=== PATIENT | male | born 1935 | race Caucasian/White ===

== ENCOUNTER → 2017-01-06 | Outpatient (CLI) | payer MEDICARE ==
[~2017-01-06] MED LIST: ACIP20TA19 PO; CIAL5TAB PO; DILA2TAB2 PO; ERGO50000 PO; LACT20SO4 PO; MERC50TA PO; POLY17PO3 PO; PROP20TA3 PO; RABE1TAB PO; RAPA4CAP PO; RIFA550 PO; SPIR25TA PO; TRAM50TA PO; XIFA550T4 PO
[2017-01-06 12:31] LABS: BASOPHIL % 0.7 % (0.0-2.0); EOSINOPHIL # 0.3 TH/MM3 (0-0.4); HEMATOCRIT 38.2 % (39.0-51.0); LYMPH % 17.3 % (9.0-44.0); LYMPHOCYTE # 0.8 TH/MM3 (1.0-4.8); MEAN CELL VOLUME 95.6 FL (80.0-100.0); MEAN CORPUSCULAR HEMOGLOBIN 32.8 PG (27.0-34.0); MEAN CORPUSCULAR HGB CONC 34.3 % (32.0-36.0); MONO % 6.3 % (0.0-8.0); NEUT % 69.7 % (16.0-70.0); PLATELET COUNT 66 TH/MM3 (150-450); RED BLOOD COUNT 3.99 MIL/MM3 (4.50-5.90); RED CELL DISTRIBUTION WIDTH 14.7 % (11.6-17.2); WHITE BLOOD COUNT 4.4 TH/MM3 (4.0-11.0)
[2017-01-06 12:34] LABS: HEMO FLAGS AUTO DIFF
[2017-01-06 12:53] LABS: AMYLASE 98 U/L (25-115); ANION GAP 7 MEQ/L (5-15); AST (GOT) 29 U/L (15-37); BICARBONATE 20.6 MEQ/L (21.0-32.0); BLOOD UREA NITROGEN 23 MG/DL (7-18); CHLORIDE 108 MEQ/L (98-107); GLOMERULAR FILTRATION RATE 62 ML/MIN (>89); POTASSIUM 4.6 MEQ/L (3.5-5.1); SODIUM (NA) 136 MEQ/L (136-145)
[2017-01-06 12:59] LABS: ALKALINE PHOSPHATASE 116 U/L (45-117); ALT (GPT) 33 U/L (12-78); TOTAL BILIRUBIN ADULT 1.4 MG/DL (0.2-1.0)
[2017-01-06 14:22] LABS: PLATELET ESTIMATE SMEAR LOW (NORMAL); PLATELET MORPHOLOGY NORMAL (NORMAL); SCAN/DIFF AUTO DIFF CONFIRMED
== END ==
LOC: PLAB 09:35
DX: K50.90 Crohn's disease, unspecified, without complications (principal)
CPT/HCPCS: 36415; 80053; 82150; 83690; 85025

== ENCOUNTER 2017-02-27 19:23 | Emergency (ER) | payer MEDICARE ==
[~2017-02-27] VITALS: Ht 172.7 cm; Wt 70.8 kg
[~2017-02-27 19:23] MED LIST changes: -DILA2TAB2 PO; -POLY17PO3 PO; -RABE1TAB PO; -RAPA4CAP PO; -TRAM50TA PO; -XIFA550T4 PO
[2017-02-27] MEDS ORDERED: IOHEXOL 350 MG/ML 10 ML VIAL (for RAD DIAG) IVCONTRAST ONE (19:24)
[2017-02-27 19:44] VITALS: BP 147/64; PULSE 60; RESP 17; TEMP 98.4; O2SAT 96
[2017-02-27] MEDS ORDERED: SPIR25TA PO (19:55)
[2017-02-27] MEDS ORDERED: DILA2TAB2 PO (19:55)
[2017-02-27] MEDS ORDERED: PROP20TA3 PO (19:55)
[2017-02-27] MEDS ORDERED: RAPA4CAP PO (19:55)
[2017-02-27] MEDS ORDERED: RABE1TAB PO (19:55)
[2017-02-27] MEDS ORDERED: MERC50TA PO (19:55)
[2017-02-27] MEDS ORDERED: CIAL5TAB PO (19:55)
[2017-02-27] MEDS ORDERED: XIFA550T4 PO (19:55)
[2017-02-27] MEDS ORDERED: TRAM50TA PO (19:55)
[2017-02-27] MEDS ORDERED: SODIUM CHLORIDE 0.9% FLUSH 10 ML FLUSH IV FLUSH PRN (20:30)
[2017-02-27 21:07] LABS: CHLORIDE 111 MEQ/L (98-107); SODIUM (NA) 138 MEQ/L (136-145)
[2017-02-27 21:10] LABS: ANION GAP 8 MEQ/L (5-15); BICARBONATE 19.1 MEQ/L (21.0-32.0)
--- NOTE | 2017-02-27 21:10 | PD ---
HPI Chief Complaint: GI Complaint Time Seen by Provider: 19:55 Travel History International Travel<30 days: No Contact w/Intl Traveler<30days: No Traveled to known affect area: No History of Present Illness HPI patient 82-year-old male presents emergency department for evaluation of generalized abdominal cramping which was severe earlier today but the patient tach medication at home and then belched and now is feeling better. He does have a history of Crohn's disease, denies any fever mild nausea without vomiting no changes in stool habits in fact his stools of been hard which she thinks is strange for a patient with Crohn's disease. States he feels Silly being here now, he does plan on taking a road trip tomorrow and wants to make sure nothing is life threatening going on right now. Currently his symptoms are resolved, mild. 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,GERD, CHRONS DISEASE, CIRRHOSIS OF LIVER) Genitourinary: Yes (ENLARGED PROSTATE) Hepatitis: No Hiatal Hernia: Yes Hypertension: Yes Immune Disorder: Yes (CA; CHRONS) Musculoskeletal: Yes (CERVICAL SPINE--PINCHED NERVE CAUSING LEFT ARM PAIN) Neurologic: Yes (BALANCE ISSUES) Psychiatric: No Reproductive: No Respiratory: Yes Thyroid Disease: No Past Surgical History Abdominal Surgery: Yes (SMALL BOWEL RESECTION X2, CHOLECYSTECTOMY,APPENDECTOMY) Body Medical Devices: NONE Cardiac Surgery: No Cholecystectomy: Yes Ear Surgery: No Endocrine Surgery: No Eye Surgery: No Genitourinary Surgery: No Gynecologic Surgery: No Joint Replacement: No Oral Surgery: Yes (TONSILLECTOMY) Pacemaker: No Thoracic Surgery: No Other Surgery: Yes Social History Alcohol Use: No Tobacco Use: Yes (1/2PPD) Substance Use: No Allergies-Medications (Allergen,Severity, Reaction): Coded Allergies: cephalexin (Verified Allergy, Severe, Rash INSIDE MOUTH, 02/27/17) Reported Meds & Prescriptions Reported Meds & Active Scripts Active Miralax (Polyethylene Glycol 3350) 17 Gram Powd.pack 17 Gm PO BID 7 Days Reported Rapaflo (Silodosin) 4 Mg Cap Unknown Dose PO DAILY Cialis (Tadalafil) 5 Mg Tab 5 Mg PO DAILY Do not exceed 1 dose/day. Dilaudid (Hydromorphone HCl) 2 Mg Tab 2 Mg PO Q6H PRN Tramadol (Tramadol HCl) 50 Mg Tab Unknown Dose PO Q4H PRN Spironolactone 25 Mg Tab 25 Mg PO BIDPC Xifaxan (Rifaximin) 550 Mg Tab 550 Mg PO BID Rabeprazole (Rabeprazole Sodium) 20 Mg Tab 20 Mg PO DAILY Propranolol (Propranolol HCl) 20 Mg Tab 20 Mg PO BID Mercaptopurine 50 Mg Tab 25 Mg PO DAILY Review of Systems Except as stated in HPI: all other systems reviewed are Neg Physical Exam Narrative GENERAL: Well-developed, well-nourished, no obvious distress. Appears younger than stated age. SKIN: Focused skin assessment warm/dry. HEAD: Atraumatic. Normocephalic. EYES: Pupils equal and round. No scleral icterus. No injection or drainage. ENT: No nasal bleeding or discharge. Mucous membranes pink and moist. NECK: Trachea midline. No JVD. CARDIOVASCULAR: Regular rate and rhythm. No murmur appreciated. RESPIRATORY: No accessory muscle use. Clear to auscultation. Breath sounds equal bilaterally. GASTROINTESTINAL: Abdomen soft, non-tender, mildly distended. Well-healed midline surgical scar. Hepatic and splenic margins not palpable. Small midline hernia associated with surgical scar easily reducible. MUSCULOSKELETAL: No obvious deformities. No clubbing. No cyanosis. No edema. NEUROLOGICAL: Awake and alert. No obvious cranial nerve deficits. Motor grossly within normal limits. Normal speech. PSYCHIATRIC: Appropriate mood and affect; insight and judgment normal. Data Data Last Documented VS Vital Signs Date Time Temp Pulse Resp B/P (MAP) Pulse Ox O2 Delivery O2 Flow Rate FiO2 02/27/17 23:04 77 16 147/78 (101) 99 02/27/17 19:44 98.4 Orders Orders Complete Blood Count With Diff (02/27/17 20:22) Comprehensive Metabolic Panel (02/27/17 20:22) Lipase (02/27/17 20:22) Prothrombin Time / Inr (Pt) (02/27/17 20:22) Act Partial Throm Time (Ptt) (02/27/17 20:22) Ct Abd/Pel W Iv Contrast(Rout) (02/27/17 20:22) Iv Access Insert/Monitor (02/27/17 20:22) Ecg Monitoring (02/27/17 20:22) Oximetry (02/27/17 20:22) Sodium Chloride 0.9% Flush (Ns Flush) (02/27/17 20:30) Iohexol 350 Inj (Omnipaque 350 Inj) (02/27/17 19:24) Labs Laboratory Tests Test 02/27/17 20:40 02/27/17 21:00 Prothrombin Time 13.4 SEC Prothromb Time International Ratio 1.2 RATIO Activated Partial Thromboplast Time 28.4 SEC Blood Urea Nitrogen 21 MG/DL Creatinine 0.99 MG/DL Random Glucose 115 MG/DL Total Protein 6.4 GM/DL Albumin 3.2 GM/DL Calcium Level 8.1 MG/DL Alkaline Phosphatase 55 U/L Aspartate Amino Transf (AST/SGOT) 41 U/L Alanine Aminotransferase (ALT/SGPT) 32 U/L Total Bilirubin 2.5 MG/DL Sodium Level 138 MEQ/L Potassium Level 4.0 MEQ/L Chloride Level 111 MEQ/L Carbon Dioxide Level 19.1 MEQ/L Anion Gap 8 MEQ/L Estimat Glomerular Filtration Rate 73 ML/MIN Lipase 248 U/L White Blood Count 5.2 TH/MM3 Red Blood Count 3.90 MIL/MM3 Hemoglobin 12.4 GM/DL Hematocrit 37.3 % Mean Corpuscular Volume 95.6 FL Mean Corpuscular Hemoglobin 31.7 PG Mean Corpuscular Hemoglobin Concent 33.1 % Red Cell Distribution Width 14.7 % Platelet Count 68 TH/MM3 Mean Platelet Volume 8.0 FL Neutrophils (%) (Auto) 74.8 % Lymphocytes (%) (Auto) 12.8 % Monocytes (%) (Auto) 5.5 % Eosinophils (%) (Auto) 3.1 % Basophils (%) (Auto) 3.8 % Neutrophils # (Auto) 3.8 TH/MM3 Lymphocytes # (Auto) 0.7 TH/MM3 Monocytes # (Auto) 0.3 TH/MM3 Eosinophils # (Auto) 0.2 TH/MM3 Basophils # (Auto) 0.2 TH/MM3 CBC Comment DIFF FINAL Differential Comment MDM Medical Decision Making Medical Screen Exam Complete: Yes Emergency Medical Condition: Yes Differential Diagnosis Obstruction, constipation, Crohn's flare, dehydration. Narrative Course Patient roomed emergency department, minimally distended the patient states that his baseline given his hepatomegaly with a history of cirrhosis. He states he feels well now and wants to travel to [place] for a football game tomorrow. Observed for 3 hours in the emergency department had no return of his symptoms. Basic labs do show some minimal evidence of dehydration with minimal elevation in chloride, then will decrease in bicarbonate. Patient offered pain medicine and declined, CAT scan does show some stool throughout the large colon but no obvious obstruction. Official read reviewed is nonspecific finding could be early obstruction. These findings were relayed to the patient at this time he would like to go home. Discussed symptomatic management returned ED criteria. Follow-up with a primary care physician. He appears well and has not required any pain medicine R intervention in the emergency department think it's reasonable to discharge at this time. Discussed while out in the [facility] tomorrow for football game needs to stay hydrated and take frequent breaks. He verbalized understanding and agreement. Diagnosis Primary Impression: Abdominal pain Med/Other Pt SpecificInfo: Prescription(s) given Scripts Polyethylene Glycol 3350 (Miralax) 17 Gram Powd.pack 17 GM PO BID for 7 Days Prov: Samuel Boyd MD 02/27/17 Disposition: 01 DISCHARGE HOME Condition: Stable Samuel Boyd MD Feb 27, 2017 21:10
[2017-02-27 21:11] LABS: BLOOD UREA NITROGEN 21 MG/DL (7-18)
[2017-02-27 21:13] LABS: ALT (GPT) 32 U/L (12-78)
[2017-02-27 21:14] LABS: AST (GOT) 41 U/L (15-37); GLOMERULAR FILTRATION RATE 73 ML/MIN (>89)
[2017-02-27 21:15] LABS: TOTAL BILIRUBIN ADULT 2.5 MG/DL (0.2-1.0)
[2017-02-27 21:16] LABS: ALKALINE PHOSPHATASE 55 U/L (45-117)
[2017-02-27 21:21] LABS: AUTOMATED NEUTROPHIL # 3.8 TH/MM3 (1.8-7.7); BASOPHIL # 0.2 TH/MM3 (0-0.2); BASOPHIL % 3.8 % (0.0-2.0); EOSINOPHIL # 0.2 TH/MM3 (0-0.4); EOSINOPHIL % 3.1 % (0.0-4.0); HEMATOCRIT 37.3 % (39.0-51.0); LYMPH % 12.8 % (9.0-44.0); LYMPHOCYTE # 0.7 TH/MM3 (1.0-4.8); MEAN CELL VOLUME 95.6 FL (80.0-100.0); MEAN CORPUSCULAR HEMOGLOBIN 31.7 PG (27.0-34.0); MEAN CORPUSCULAR HGB CONC 33.1 % (32.0-36.0); MONO % 5.5 % (0.0-8.0); NEUT % 74.8 % (16.0-70.0); PLATELET COUNT 68 TH/MM3 (150-450); RED CELL DISTRIBUTION WIDTH 14.7 % (11.6-17.2); WHITE BLOOD COUNT 5.2 TH/MM3 (4.0-11.0)
[2017-02-27 21:25] LABS: HEMO FLAGS DIFF FINAL
[2017-02-27 21:36] LABS: APTT (PATIENT) 28.4 SEC (24.3-30.1); INTERNATIONAL NORMALIZED RATIO 1.2 RATIO; PROTHROMBIN TIME - PATIENT 13.4 SEC (9.8-11.6)
--- NOTE | 2017-02-27 22:38 | RADRPT ---
EXAM DATE/TIME: 02/27/2017 21:27 [facility] COMPARISON: CT ABDOMEN & PELVIS W CONTRAST, April 24, 2011, 14:13. INDICATIONS : Severe abdominal pain. History of Crohn's IV CONTRAST: 96 cc Omnipaque 350 (iohexol) IV ORAL CONTRAST: No oral contrast ingested. RADIATION DOSE: 9.18 CTDIvol (mGy) MEDICAL HISTORY : Cirrhosis. Gastroesophageal reflux disease. Chronic obstructive pulmonary disease.Melanoma, Thrombocy topenia SURGICAL HISTORY : Appendectomy. Cholecystectomy.Colon resection.Liver biopsy ENCOUNTER: Initial ACUITY: 1 day PAIN SCALE: 3/10 LOCATION: abdomen TECHNIQUE: Volumetric scanning of the abdomen and pelvis was performed. Using automated exposure control and ad justment of the mA and/or kV according to patient size, radiation dose was kept as low as reasonably achievable to obtain optimal diagnostic quality images. DICOM format image data is available electro nically for review and comparison. FINDINGS: LOWER LUNGS: The visualized lower lungs are clear. LIVER: Diffuse fatty change without focal lesion. Hemoclips in the francois from prior cholecystectomy. SPLEEN: Normal size without lesion. PANCREAS: Within normal limits. KIDNEYS: Normal in size and shape. There is no mass, stone or hydronephrosis. ADRENAL GLANDS: Within normal limits. VASCULAR: There is no aortic aneurysm. Diffuse wall calcification. BOWEL/MESENTERY: Small bowel loops measure up to 2.7 cm in dimension and there is fecalization of the contents of the mid and distal small bowel. No dilated colon. There is history of surgical removal of the cecum and terminal ileum. No evidence of free fluid. ABDOMINAL WALL: There is a fat-containing moderate size umbilical hernia and separation between the rectus muscles me asuring 1.8 cm. This is similar appearance to prior CT in 2010. RETROPERITONEUM: There is no lymphadenopathy. BLADDER: No wall thickening or mass. REPRODUCTIVE: Within normal limits. INGUINAL: There is no lymphadenopathy or hernia. MUSCULOSKELETAL: Within normal limits for patient age. CONCLUSION: 1. Fecalization of the small bowel with mildly dilated small bowel loops. This is a nonspecific find ing and can be seen with ileus, obstruction, ischemia, inflammation, and infection. 2. Umbilical hernia containing fat, unchanged from 2011. Mack Taylor MD on February 27, 2017 at 22:29 Board Certified Radiologist. This report was verified electronically.
[2017-02-27] MEDS ORDERED: POLY17PO3 PO (22:45)
[2017-02-27 23:04] VITALS: BP 147/78
== END 2017-02-27 23:06 | disposition home or self-care (01) ==
LOC: PHED 19:23
DX: R10.84 Generalized abdominal pain (principal); I10 Essential (primary) hypertension; F17.200 Nicotine dependence, unspecified, uncomplicated; Z87.19 Personal history of other diseases of the digestive system; Z86.79 Personal history of other diseases of the circulatory system; Z87.448 Personal history of other diseases of urinary system; Z86.2 Personal history of diseases of the blood and blood-forming organs and certain disorders involving the immune mechanism; Z87.39 Personal history of other diseases of the musculoskeletal system and connective tissue; Z86.69 Personal history of other diseases of the nervous system and sense organs; Z87.09 Personal history of other diseases of the respiratory system; Z85.828 Personal history of other malignant neoplasm of skin
CPT/HCPCS: 74177; 80053; 83690; 85025; 85610; 85730; 99285; Q9967

== ENCOUNTER → 2017-04-19 | Outpatient (CLI) | payer MEDICARE ==
[~2017-04-19] MED LIST changes: -ACIP20TA19 PO; +DILA2TAB4 PO; -ERGO50000 PO; -LACT20SO4 PO; +POLY17PO3 PO; +RABE1TAB PO; +RAPA4CAP PO; -RIFA550 PO; +TRAM50TA PO; +XIFA550T4 PO
== END ==
LOC: PLAB 10:11
PROVIDERS: ATTEND Physician Assistant Medical
DX: K74.60 Unspecified cirrhosis of liver (principal)
CPT/HCPCS: 36415; 82105

== ENCOUNTER 2017-09-21 11:18 | Inpatient (IN) | payer MEDICARE ==
[~2017-09-21] VITALS: Ht 177.8 cm; Wt 70.0 kg
[2017-09-21] VITALS (10 sets, daily range): BP systolic 132–155; BP diastolic 64–70; PULSE 69–90; RESP 18–28; TEMP 98–98.6; O2SAT 96–100
--- NOTE | 2017-09-21 11:32 | PD ---
HPI Chief Complaint: Altered Mental Status Time Seen by Provider: 11:26 Travel History International Travel<30 days: No Contact w/Intl Traveler<30days: No Traveled to known affect area: No History of Present Illness HPI 82-year-old male presents by ambulance for altered mental status per . is not present on initial examination. Patient is very uncooperative and will only tell his name and that nothing is bothering him and he is not confused. History is very limited. 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,GERD, CHRONS DISEASE, CIRRHOSIS OF LIVER) Genitourinary: Yes (ENLARGED PROSTATE) Hepatitis: No Hiatal Hernia: Yes Hypertension: Yes Immune Disorder: Yes (CA; CHRONS) Musculoskeletal: Yes (CERVICAL SPINE--PINCHED NERVE CAUSING LEFT ARM PAIN) Neurologic: Yes (BALANCE ISSUES) Psychiatric: No Reproductive: No Respiratory: Yes Thyroid Disease: No Past Surgical History Abdominal Surgery: Yes (SMALL BOWEL RESECTION X2, CHOLECYSTECTOMY,APPENDECTOMY) Body Medical Devices: NONE Cardiac Surgery: No Cholecystectomy: Yes Ear Surgery: No Endocrine Surgery: No Eye Surgery: No Genitourinary Surgery: No Gynecologic Surgery: No Joint Replacement: No Neurologic Surgery: No Oral Surgery: Yes (TONSILLECTOMY) Pacemaker: No Thoracic Surgery: No Other Surgery: Yes Social History Alcohol Use: No Tobacco Use: Yes (1/2PPD) Substance Use: No Allergies-Medications (Allergen,Severity, Reaction): Coded Allergies: cephalexin (Verified Allergy, Severe, Rash INSIDE MOUTH, 09/21/17) Reported Meds & Prescriptions Reported Meds & Active Scripts Active Reported Rapaflo (Silodosin) 4 Mg Cap Unknown Dose PO DAILY Cialis (Tadalafil) 5 Mg Tab 5 Mg PO DAILY Do not exceed 1 dose/day. Spironolactone 25 Mg Tab 25 Mg PO BIDPC Xifaxan (Rifaximin) 550 Mg Tab 550 Mg PO BID Rabeprazole (Rabeprazole Sodium) 20 Mg Tab 20 Mg PO DAILY Propranolol (Propranolol HCl) 20 Mg Tab 20 Mg PO TID Mercaptopurine 50 Mg Tab 25 Mg PO DAILY Review of Systems Except as stated in HPI: all other systems reviewed are Neg Physical Exam Narrative GENERAL: 82-year-old male in no apparent distress SKIN: Focused skin assessment warm/dry. HEAD: Atraumatic. Normocephalic. EYES: Pupils equal and round. No scleral icterus. No injection or drainage. ENT: No nasal bleeding or discharge. Mucous membranes pink and moist. NECK: Trachea midline. CARDIOVASCULAR: Regular rate and rhythm. RESPIRATORY: No accessory muscle use. Clear to auscultation. Breath sounds equal bilaterally. GASTROINTESTINAL: Abdomen soft, non-tender, nondistended. MUSCULOSKELETAL: No obvious deformities. No clubbing. No cyanosis. No edema. NEUROLOGICAL: Awake and alert to name. Moves extremities but uncooperative with full neuro exam. Normal speech. Data Data Last Documented VS Vital Signs Date Time Temp Pulse Resp B/P (MAP) Pulse Ox O2 Delivery O2 Flow Rate FiO2 09/21/17 11:30 98 Room Air 09/21/17 11:25 98.3 75 18 139/66 (90) Orders Orders Electrocardiogram (09/21/17 11:29) Ammonia (09/21/17 11:29) Complete Blood Count With Diff (09/21/17 11:29) Comprehensive Metabolic Panel (09/21/17 11:29) Creatine Kinase (Cpk) (09/21/17 11:29) Prothrombin Time / Inr (Pt) (09/21/17 11:29) Act Partial Throm Time (Ptt) (09/21/17 11:29) Urinalysis - C+S If Indicated (09/21/17 11:29) Chest, Single Ap (09/21/17 11:29) Ct Brain W/O Iv Contrast(Rout) (09/21/17 11:29) Ecg Monitoring (09/21/17 11:29) Iv Access Insert/Monitor (09/21/17 11:29) Oximetry (09/21/17 11:29) Sodium Chloride 0.9% Flush (Ns Flush) (09/21/17 11:30) Drug Screen, Random Urine (09/21/17 11:29) Alcohol (Ethanol) (09/21/17 11:29) Lactulose Liq (Lactulose Liq) (09/21/17 13:15) Sodium Chlorid 0.9% 500 Ml Inj (Ns 500 M (09/21/17 14:30) Admit Order (Ed Use Only) (09/21/17 14:49) Labs Laboratory Tests Test 09/21/17 11:50 09/21/17 11:52 09/21/17 14:45 White Blood Count 7.1 TH/MM3 Red Blood Count 4.14 MIL/MM3 Hemoglobin 13.7 GM/DL Hematocrit 39.2 % Mean Corpuscular Volume 94.9 FL Mean Corpuscular Hemoglobin 33.1 PG Mean Corpuscular Hemoglobin Concent 34.9 % Red Cell Distribution Width 15.2 % Platelet Count 70 TH/MM3 Mean Platelet Volume 7.6 FL Neutrophils (%) (Auto) 80.4 % Lymphocytes (%) (Auto) 12.8 % Monocytes (%) (Auto) 4.8 % Eosinophils (%) (Auto) 1.6 % Basophils (%) (Auto) 0.4 % Neutrophils # (Auto) 5.7 TH/MM3 Lymphocytes # (Auto) 0.9 TH/MM3 Monocytes # (Auto) 0.3 TH/MM3 Eosinophils # (Auto) 0.1 TH/MM3 Basophils # (Auto) 0.0 TH/MM3 CBC Comment AUTO DIFF Differential Comment AUTO DIFF CONFIRMED Platelet Estimate LOW Platelet Morphology Comment NORMAL Ovalocytes 1+ Prothrombin Time 13.0 SEC Prothromb Time International Ratio 1.3 RATIO Activated Partial Thromboplast Time 26.6 SEC Blood Urea Nitrogen 26 MG/DL Creatinine 1.33 MG/DL Random Glucose 126 MG/DL Total Protein 7.2 GM/DL Albumin 3.6 GM/DL Calcium Level 8.9 MG/DL Alkaline Phosphatase 119 U/L Aspartate Amino Transf (AST/SGOT) 55 U/L Alanine Aminotransferase (ALT/SGPT) 47 U/L Total Bilirubin 2.1 MG/DL Sodium Level 143 MEQ/L Potassium Level 4.3 MEQ/L Chloride Level 115 MEQ/L Carbon Dioxide Level 20.3 MEQ/L Anion Gap 8 MEQ/L Estimat Glomerular Filtration Rate 52 ML/MIN Total Creatine Kinase 42 U/L Ethyl Alcohol Level LESS THAN 3 MG/DL Ammonia 110 MCMOL/L Urine Color YELLOW Urine Turbidity CLEAR Urine pH 6.0 Urine Specific [place] 1.018 Urine Protein NEG mg/dL Urine Glucose (UA) NEG mg/dL Urine Ketones NEG mg/dL Urine Occult Blood NEG Urine Nitrite NEG Urine Bilirubin NEG Urine Urobilinogen 2.0 MG/DL Urine Leukocyte Esterase NEG Urine RBC 1 /hpf Urine WBC 1 /hpf Urine Squamous Epithelial Cells <1 /hpf Urine Hyaline Casts 3 /lpf Microscopic Urinalysis Comment CATH-CULT NOT IND MDM Medical Decision Making Medical Screen Exam Complete: Yes Emergency Medical Condition: Yes Medical Record Reviewed: Yes (Past history confirmed) Interpretation(s) CBC & BMP Diagram 09/21/17 11:50 Total Protein 7.2, Albumin 3.6, Calcium Level 8.9, Alkaline Phosphatase 119 H, Aspartate Amino Transf (AST/SGOT) 55 H, Alanine Aminotransferase (ALT/SGPT) 47, Total Bilirubin 2.1 H Last [address] 09/21/17 1129 Signed Impressions: Service Date/Time: Thursday, September 21, 2017 12:23 - CONCLUSION: No acute intracranial abnormality. Tramaine Zambrano MD Chest X-Ray 09/21/17 1129 Signed Impressions: Service Date/Time: Thursday, September 21, 2017 11:31 - CONCLUSION: No acute disease. Tramaine Zambrano MD Differential Diagnosis Bleed, hepatic encephalopathy, UTI, electrolyte abnormality Narrative Course We will check blood work, urinalysis, CT brain and monitor ED workup with hepatic encephalopathy with elevated ammonia. Will dose with lactulose and admit. Physician Communication Physician Communication dr craig agrees to admit Diagnosis Primary Impression: Hepatic encephalopathy Additional Impressions: Renal insufficiency Thrombocytopenia Admitting Information Admitting Physician Requests: Admit Tia Maurer MD Sep 21, 2017 11:32
--- NOTE | 2017-09-21 12:03 | RADRPT ---
EXAM DATE/TIME: 09/21/2017 11:31 [facility] COMPARISON: No previous studies available for comparison. INDICATIONS : Syncope MEDICAL HISTORY : Cirrhosis. Gastroesophageal reflux disease. Chronic obstructive pulmonary disease. melanoma, thro mbocytopenia, liver biopsy SURGICAL HISTORY : Appendectomy. colon resection ENCOUNTER: Initial ACUITY: 1 day PAIN SCORE: Non-responsive. LOCATION: Bilateral chest FINDINGS: A single view of the chest demonstrates the lungs to be symmetrically aerated without evidence of mas s, infiltrate or effusion. The cardiomediastinal contours are unremarkable. Osseous structures are intact. CONCLUSION: No acute disease. Tramaine Zambrano MD on September 21, 2017 at 12:01 Board Certified Radiologist. This report was verified electronically.
[2017-09-21] MEDS: SODIUM CHLORIDE 0.9% FLUSH 10 ML FLUSH IV FLUSH PRN (12:06)
[2017-09-21 12:30] LABS: AUTOMATED NEUTROPHIL # 5.7 TH/MM3 (1.8-7.7); BASOPHIL % 0.4 % (0.0-2.0); EOSINOPHIL # 0.1 TH/MM3 (0-0.4); EOSINOPHIL % 1.6 % (0.0-4.0); HEMATOCRIT 39.2 % (39.0-51.0); HEMOGLOBIN 13.7 GM/DL (13.0-17.0); LYMPH % 12.8 % (9.0-44.0); LYMPHOCYTE # 0.9 TH/MM3 (1.0-4.8); MEAN CELL VOLUME 94.9 FL (80.0-100.0); MEAN CORPUSCULAR HEMOGLOBIN 33.1 PG (27.0-34.0); MEAN CORPUSCULAR HGB CONC 34.9 % (32.0-36.0); MEAN PLATELET VOLUME 7.6 FL (7.0-11.0); MONO % 4.8 % (0.0-8.0); MONOCYTE # 0.3 TH/MM3 (0-0.9); NEUT % 80.4 % (16.0-70.0); PLATELET COUNT 70 TH/MM3 (150-450); RED BLOOD COUNT 4.14 MIL/MM3 (4.50-5.90); RED CELL DISTRIBUTION WIDTH 15.2 % (11.6-17.2); WHITE BLOOD COUNT 7.1 TH/MM3 (4.0-11.0)
--- NOTE | 2017-09-21 12:40 | RADRPT ---
EXAM DATE/TIME: 09/21/2017 12:23 [facility] COMPARISON: CT BRAIN W/O CONTRAST, January 18, 2016, 20:51. INDICATIONS : Increasing confusion RADIATION DOSE: 56.35 CTDIvol (mGy) MEDICAL HISTORY : Hypertension. Melanoma SURGICAL HISTORY : None. ENCOUNTER: Initial ACUITY: 1 day PAIN SCALE: 0/10 LOCATION: cranial TECHNIQUE: Multiple contiguous axial images were obtained of the head. Using automated exposure control and adj ustment of the mA and/or kV according to patient size, radiation dose was kept as low as reasonably a chievable to obtain optimal diagnostic quality images. DICOM format image data is available electro nically for review and comparison. FINDINGS: CEREBRUM: The ventricles are normal for age. No evidence of midline shift, mass lesion, hemorrhage or acute in farction. No extra-axial fluid collections are seen. POSTERIOR FOSSA: The cerebellum and brainstem are intact. The 4th ventricle is midline. The cerebellopontine angle i s unremarkable. EXTRACRANIAL: The visualized portion of the orbits is intact. SKULL: The calvaria is intact. No evidence of skull fracture. CONCLUSION: No acute intracranial abnormality. Tramaine Zambrano MD on September 21, 2017 at 12:37 Board Certified Radiologist. This report was verified electronically.
[2017-09-21 12:44] LABS: INTERNATIONAL NORMALIZED RATIO 1.3 RATIO
[2017-09-21 12:51] LABS: ALBUMIN 3.6 GM/DL (3.4-5.0); AST (GOT) 55 U/L (15-37); BICARBONATE 20.3 MEQ/L (21.0-32.0); BLOOD UREA NITROGEN 26 MG/DL (7-18); CALCIUM 8.9 MG/DL (8.5-10.1); CHLORIDE 115 MEQ/L (98-107); CREATININE 1.33 MG/DL (0.60-1.30); GLOMERULAR FILTRATION RATE 52 ML/MIN (>89); GLUCOSE,RANDOM 126 MG/DL (74-106); SODIUM (NA) 143 MEQ/L (136-145)
[2017-09-21 12:52] LABS: ALT (GPT) 47 U/L (12-78)
[2017-09-21 12:54] LABS: ALKALINE PHOSPHATASE 119 U/L (45-117); TOTAL BILIRUBIN ADULT 2.1 MG/DL (0.2-1.0); TOTAL PROTEIN 7.2 GM/DL (6.4-8.2)
[2017-09-21 13:11] LABS: OVALOCYTES 1+ (NORMAL)
[2017-09-21] MEDS ORDERED: LACTULOSE SYRUP 20 GM/30 ML CUP PO ONE (13:15)
[2017-09-21] MEDS ORDERED: SODIUM CHLORID 0.9% 500 ML INJ 500 ML IV ONE (14:30)
[2017-09-21] MEDS ORDERED: ONDANSETRON HCL 4 MG/2 ML VIAL IVP PRN (15:00)
[2017-09-21] MEDS ORDERED: NALOXONE HCL 0.4 MG/ML AMP IV PUSH PRN (15:00)
[2017-09-21] MEDS ORDERED: SENNOSIDES 8.6 MG TAB PO PRN (15:00)
[2017-09-21] MEDS ORDERED: MAGNESIUM HYDROXIDE SUSP 30 ML CUP PO PRN (15:00)
[2017-09-21] MEDS ORDERED: PILL SPLITTER OTHER PRN (15:15)
[2017-09-21 15:25] LABS: BILIRUBIN, URINE NEG (NEG); BLOOD, URINE NEG (NEG); GLUCOSE,URINE NEG (NEG); HYALINE CAST, URINE 3 /lpf (RARE); KETONE, URINE NEG (NEG); NITRITE,URINE NEG (NEG); SQUAMOUS EPITHELIAL CELL URINE <1 /hpf (0-5); URINE COLOR YELLOW (YELLW/STRAW); URINE LEUKOCYTE ESTERASE NEG (NEG)
--- NOTE | 2017-09-21 15:41 | HHI.HP ---
[facility] Unknown Admission Diagnosis hepatic encephalopathy Diagnoses: Chief Complaint: Change in mental status Travel History International Travel<30 Days: No Contact w/Intl Traveler <30 Da: No Traveled to Known Affected Are: No History of Present Illness 82 years old male with history of liver cirrhosis, Burns, also history of alcoholism quit about 6 years ago, thrombocytopenia hypersplenism, multiple continuous squamous cell cancer, presented to the ED with a change of mental status. I saw the patient with family at the bedside his and his son, patient was open eyes however he was unable to answer questions coherently he was constantly answering with "Irving" which is his called me first name. He stated patient started couple of days ago to be this which got worse and today, per the ED physician patient was able to answer questions when she saw him. I discussed with the family patient seems to be having previous mucus oral bleeding on his lips, I reviewed his medical record he has a history of thrombocytopenia for which he sees Dr. Luis. I discussed with the family the CODE STATUS, the dose voice the patient's wishes to be DO NOT RESUSCITATE however they were not ready to make it official as an order, and they ended up wanting him to be full code at this point therefore in view to his increased ammonia that was found and fragility on top of his excessive wheezing I will admit him to the ICU to monitor for the first 24 hours. General no further history could be obtained from the patient or his family they told me he used to be alcoholic but he quit over 6 years ago he is a current smoker. Review of Systems All systems reviewed and was positive for what is mentioned in history of present illness otherwise negative Past Family Social History Past Medical History In melanoma Multiple cutaneous squamous cell cancer GERD Crohn's disease Liver cirrhosis Remote alcohol abuse Tobacco abuse BPH COPD Past Surgical History As above Allergies: Coded Allergies: cephalexin (Verified Allergy, Severe, Rash INSIDE MOUTH, 09/21/17) Family History Unobtainable Social History Smoke 1-2 pack per day, history of remote alcohol abuse, no illicit drug abuse Physical Exam Vital Signs Vital Signs Date Time Temp Pulse Resp B/P (MAP) Pulse Ox O2 Delivery O2 Flow Rate FiO2 09/21/17 11:30 98 Room Air 09/21/17 11:25 98.3 75 18 139/66 (90) 97 Physical Exam GENERAL: This is a frail malnourished looking patient who is confused SKIN: Multiple subdural and mucous bleeding, multiple skin lesion, (cutaneous squamous cell mostly on the lower leg) HEAD: Atraumatic. Normocephalic. EYES: Pupils equal round and reactive. Extraocular motions intact. No scleral icterus. ENT: dried mucus bleeding on the left NECK: Trachea midline. Supple CARDIOVASCULAR: Regular rate and rhythm without murmurs, gallops, or rubs. RESPIRATORY: Reveal wheezing bilaterally GASTROINTESTINAL: Abdomen soft, non-tender, distended. Positive bowel sounds MUSCULOSKELETAL: Extremities without clubbing, cyanosis, or edema. Multiple skin lesion squamous cell, pedal pulses appreciated NEUROLOGICAL: Confused repeating his first name constantly, moves upper and lower extremities spontaneously Laboratory Laboratory Tests Test 09/21/17 11:50 09/21/17 11:52 09/21/17 14:45 White Blood Count 7.1 Red Blood Count 4.14 Hemoglobin 13.7 Hematocrit 39.2 Mean Corpuscular Volume 94.9 Mean Corpuscular Hemoglobin 33.1 Mean Corpuscular Hemoglobin Concent 34.9 Red Cell Distribution Width 15.2 Platelet Count 70 Mean Platelet Volume 7.6 Neutrophils (%) (Auto) 80.4 Lymphocytes (%) (Auto) 12.8 Monocytes (%) (Auto) 4.8 Eosinophils (%) (Auto) 1.6 Basophils (%) (Auto) 0.4 Neutrophils # (Auto) 5.7 Lymphocytes # (Auto) 0.9 Monocytes # (Auto) 0.3 Eosinophils # (Auto) 0.1 Basophils # (Auto) 0.0 CBC Comment AUTO DIFF Differential Comment AUTO DIFF CONFIRMED Platelet Estimate LOW Platelet Morphology Comment NORMAL Ovalocytes 1+ Prothrombin Time 13.0 Prothromb Time International Ratio 1.3 Activated Partial Thromboplast Time 26.6 Blood Urea Nitrogen 26 Creatinine 1.33 Random Glucose 126 Total Protein 7.2 Albumin 3.6 Calcium Level 8.9 Alkaline Phosphatase 119 Aspartate Amino Transf (AST/SGOT) 55 Alanine Aminotransferase (ALT/SGPT) 47 Total Bilirubin 2.1 Sodium Level 143 Potassium Level 4.3 Chloride Level 115 Carbon Dioxide Level 20.3 Anion Gap 8 Estimat Glomerular Filtration Rate 52 Total Creatine Kinase 42 Ethyl Alcohol Level LESS THAN 3 Ammonia 110 Urine Color YELLOW Urine Turbidity CLEAR Urine pH 6.0 Urine Specific [place] 1.018 Urine Protein NEG Urine Glucose (UA) NEG Urine Ketones NEG Urine Occult Blood NEG Urine Nitrite NEG Urine Bilirubin NEG Urine Urobilinogen 2.0 Urine Leukocyte Esterase NEG Urine RBC 1 Urine WBC 1 Urine Squamous Epithelial Cells <1 Urine Hyaline Casts 3 Microscopic Urinalysis Comment CATH-CULT NOT IND Result Diagram: 09/21/17 1150 09/21/17 1150 Imaging Last Impressions Head CT 09/21/17 1129 Signed Impressions: Service Date/Time: Thursday, September 21, 2017 12:23 - CONCLUSION: No acute intracranial abnormality. Tramaine Zambrano MD Chest X-Ray 09/21/[id number] Signed Impressions: Service Date/Time: Thursday, September 21, 2017 11:31 - CONCLUSION: No acute disease. MD Wade Carmona VTE Risk Assessment Edrini VTE Risk Assessment: Mod/High Risk (score >= 2) Caprini Risk Assessment Model Point Value = 1 Point Value = 2 Point Value = 3 Point Value = 5 Age 41-60 Minor surgery BMI > 25 kg/m2 Swollen legs Varicose veins or History of unexplained or recurrent spontaneous Oral contraceptives or hormone replacement Sepsis (< 1 month) Serious lung disease, including pneumonia (< 1 month) Abnormal pulmonary function Acute myocardial infarction Congestive heart failure (< 1 month) History of inflammatory bowel disease Medical patient at bed rest Age 61-74 Arthroscopic surgery Major open surgery (> 45 min) Laparoscopic surgery (> 45 min) Malignancy Confined to bed (> 72 hours) Immobilizing plaster cast Central venous access Age >= 75 History of VTE Family history of VTE Factor V Leiden Prothrombin [id number] Lupus anticoagulant Anticardiolipin antibodies Elevated serum homocysteine Heparin-induced thrombocytopenia Other congenital or acquired thrombophilia Stroke (< 1 month) Elective arthroplasty Hip, pelvis, or leg fracture Acute spinal cord injury (< 1 month) Prophylaxis Regimen Total Risk Factor Score Risk Level Prophylaxis Regimen 0-1 Low Early ambulation 2 Moderate Order ONE of the following: *Sequential Compression Device (SCD) *Heparin 5000 units SQ BID 3-4 Higher Order ONE of the following medications: *Heparin 5000 units SQ TID *Enoxaparin/Lovenox 40 mg SQ daily (WT < 150 kg, CrCl > 30 mL/min) *Enoxaparin/Lovenox 30 mg SQ daily (WT < 150 kg, CrCl > 10-29 mL/min) *Enoxaparin/Lovenox 30 mg SQ BID (WT < 150 kg, CrCl > 30 mL/min) AND/OR *Sequential Compression Device (SCD) 5 or more Highest Order ONE of the following medications: *Heparin 5000 units SQ TID (Preferred with Epidurals) *Enoxaparin/Lovenox 40 mg SQ daily (WT < 150 kg, CrCl > 30 mL/min) *Enoxaparin/Lovenox 30 mg SQ daily (WT < 150 kg, CrCl > 10-29 mL/min) *Enoxaparin/Lovenox 30 mg SQ BID (WT < 150 kg, CrCl > 30 mL/min) AND *Sequential Compression Device (SCD) Assessment and Plan Assessment and Plan 82 years old male admitted with change in mental status Change in mental status Toxic metabolic encephalopathy Hyperammonemia LULU Liver cirrhosis mostly due to alcoholism and Burns Metabolic acidosis History of thrombocytopenia due to liver cirrhosis and hypersplenism DVT prophylaxis with SCD will avoid heparin at this point due to pancytopenia Plan: We will admit for observation but in the ICU for the first 24 hours patient continued to be full code per the family O2 DuoNeb Lactulose 30 mL every 6 hours repeat ammonia level in a.m. Repeat BMP in a.m. IV fluids very cautiously half liter Continue rifaximin, Aldactone, propranolol Consult palliative care Consider GI Dr. Callahan who is a patient GI specialist, ? TIPS however patient seems to be too fragile for any surgical intervention considering his multiple malignancy comorbidities SCD for DVT prophylaxis Discussed Condition With ED physician patient's and son Gloria Erickson MD Sep 21, 2017 15:41
[2017-09-21] MEDS: SODIUM CHLOR 0.9% 1000 ML INJ 1,000 ML IV SCH ×2 (16:34→20:01)
[2017-09-21] MEDS: HEPARIN SODIUM - SQ 10,000 UNITS/ML VIAL SQ SCH (16:34)
[2017-09-21] MEDS: LACTULOSE SYRUP 20 GM/30 ML CUP PO SCH (19:59)
[2017-09-21] MEDS: PROPRANOLOL HCL 20 MG TAB PO SCH (19:59)
[2017-09-21] MEDS: SPIRONOLACTONE 25 MG TAB PO SCH (19:59)
[2017-09-21] MEDS ORDERED: RESP: ALBUTEROL 2.5 MG/IPRATROPIUM 0.5 MG NEB (PRN) NEB (20:15)
[2017-09-21] MEDS: DOCUSATE SODIUM 50 MG/SENNA 8.6 MG TAB PO SCH (21:00)
[2017-09-21] MEDS ORDERED: CHLORHEXIDINE GLUCONATE 2 % 1 PACK (2 CLOTHS)(extra cloths) TOPICAL PRN (21:15)
[2017-09-21] MEDS ORDERED: RESP: ALBUTEROL 2.5 MG/IPRATROPIUM 0.5 MG NEB (SCH) NEB (22:00)
[2017-09-22] VITALS (11 sets, daily range): BP systolic 135–169; BP diastolic 62–86; PULSE 68–87; RESP 17–28; TEMP 97.9–98.3; O2SAT 97–99
[2017-09-22] MEDS: HEPARIN SODIUM - SQ 10,000 UNITS/ML VIAL SQ SCH (00:58)
[2017-09-22] MEDS: RIFAXIMIN 550 MG TAB PO SCH ×3 (00:58→22:45)
[2017-09-22] MEDS: LACTULOSE SYRUP 20 GM/30 ML CUP PO SCH ×4 (00:59→21:00)
[2017-09-22] MEDS ORDERED: TAMSULOSIN HCL 0.4 MG CAP PO ONE (04:00)
[2017-09-22] MEDS: CHLORHEXIDINE GLUCONATE 2 % 1 PACK (2 CLOTHS)(taper/protocol) TOPICAL SCH (04:00)
[2017-09-22] MEDS: SODIUM CHLOR 0.9% 1000 ML INJ 1,000 ML IV SCH (04:56)
[2017-09-22] MEDS ORDERED: RESP: ALBUTEROL 2.5 MG/IPRATROPIUM 0.5 MG NEB (PRN) NEB (05:15)
[2017-09-22 05:24] LABS: AUTOMATED NEUTROPHIL # 4.9 TH/MM3 (1.8-7.7); BASOPHIL % 0.4 % (0.0-2.0); EOSINOPHIL # 0.1 TH/MM3 (0-0.4); EOSINOPHIL % 1.4 % (0.0-4.0); HEMATOCRIT 36.7 % (39.0-51.0); HEMOGLOBIN 12.9 GM/DL (13.0-17.0); LYMPH % 13.7 % (9.0-44.0); LYMPHOCYTE # 0.8 TH/MM3 (1.0-4.8); MEAN CELL VOLUME 94.9 FL (80.0-100.0); MEAN CORPUSCULAR HEMOGLOBIN 33.2 PG (27.0-34.0); MEAN PLATELET VOLUME 7.4 FL (7.0-11.0); MONO % 5.6 % (0.0-8.0); MONOCYTE # 0.3 TH/MM3 (0-0.9); NEUT % 78.9 % (16.0-70.0); PLATELET COUNT 65 TH/MM3 (150-450); RED BLOOD COUNT 3.87 MIL/MM3 (4.50-5.90); RED CELL DISTRIBUTION WIDTH 14.9 % (11.6-17.2); WHITE BLOOD COUNT 6.1 TH/MM3 (4.0-11.0)
[2017-09-22 05:45] LABS: ALBUMIN 3.2 GM/DL (3.4-5.0); DIRECT BILIRUBIN ADULT 0.3 MG/DL (0.0-0.2)
[2017-09-22 05:48] LABS: INDIRECT BILIRUBIN 2.8 MG/DL (0.0-0.8); TOTAL BILIRUBIN ADULT 3.1 MG/DL (0.2-1.0); TOTAL PROTEIN 6.4 GM/DL (6.4-8.2)
[2017-09-22] MEDS: RESP: ALBUTEROL 2.5 MG/IPRATROPIUM 0.5 MG NEB (SCH) NEB ×4 (08:03→20:42)
[2017-09-22] MEDS: DOCUSATE SODIUM 50 MG/SENNA 8.6 MG TAB PO SCH ×2 (09:00→22:45)
--- NOTE | 2017-09-22 09:55 | EKG ---
Date Performed: 09/21/2017 Time Performed: 11:38:13 PTAGE: 82 years EKG: ATRIAL FIBRILLATION WITH ABERRANT CONDUCTION OR VENTRICULAR PREMATURE COMPLEXES MODERATE IN TRAVENTRICULAR CONDUCTION DELAY ABNORMAL RHYTHM ECG PREVIOUS TRACING : 01/18/2016 20.28 DOCTOR: Jerald Chamberlain Interpretating Date/Time 09/22/2017 09:54:46
--- NOTE | 2017-09-22 10:23 | PD.CONS ---
Consult Service Palliative Care . Consult Requested By Dr. Erickson . Primary Care Physician Unknown . Reason for Consultation a. To assist with evaluation and management of symptoms including: confusion ; diarrhea; dyspnea b. To assist medical decision maker(s) with: better understanding of current medical conditions; weighing benefits/burdens of medical treatment options; making medical treatment decisions. HPI History of Present Illness Mr. 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 The patient initially arrived without family members and due to confusion could provide no other information other than his name. tells me that the patient has a history of intermittent confusion which is attributed to his liver disease. He has been having episodes for years. The current episode was the most severe. The last very severe one was about two years ago. THough severe episodes are rare, he will have periods of confusion as often as twice a week that are mild, short-lived, and seem to resolve on their own. Spouse reports that the current episode seemed to start about 2 weeks ago. She took control over his medication and things seemed to improve. Then the confusion became quite severe over about a 24- 36 hours period leading up his ER presentation. He was unable to tell people his last name and was disoriented to place and time. Though would put out his medications, she is now wondering if he actually took them when she gave them to him. Though the patient's medical record often refers to non-alcoholic cirrhosis and DOVER, the patient and family report a long history of excessive alcohol intake which ended about 6 years ago. Patient and family are unaware of any other significant problems other than the confusion. Specifically, there has been no jaundice, no increase in abdominal circumference, no rectal bleeding or other bleeding, no increase bruising. Patient and family do not believe the patient has ever required paracentesis. He has not had fevers, chills, or sweats. There have only been changes in medications over the last weeks: * In mid-July, Dr. Luis started the patient on nicotinamide. Patient has noticed some increased loose stools with the medication, but no other symptoms. * Over the lat 6 weeks the patient has been getting local injections of some type of chemo into some of his cutaneous squamous cell cancers. The patient has been followed regularly for his thrombocytopenia by Dr. Niki Luis. The hospital electronic medical record indicates that Dr. Luis last saw the patient on 08/25/17. the patient's eyeglass assembler had noted another skin cancer and apparently the eyeglass assembler wanted clearance for procedure due to the thrombocytopenia. CBC at that time showed a white blood count of 6.8; hemoglobin 12.9; platelet count 92. Dr. Luis felt the thrombocytopenia was asymptomatic and stable and that no further treatment was warranted at that time. Nicotinamide at 500 mg twice daily was recommended. In regards to the status of the patient's other medical problems: * Crohn's disease is felt to be in remission. He has had two small bowel resections in the distant past. Last Crohn's flare up was well before they moved to [place] over 7 years ago. * COPD: Patient reports he is not on home 02. He does not use hand held inhalers. He has a nebulizer machine at home that he rarely uses. reports he has a frequent cough and does bring up phlegm. Activities do not seem to be limited by dyspnea. * Skin cancers: He sees the eyeglass assembler monthly and always has lesions that are being treated. He has had multiple excisions, radiation, and now some unkown type of locally injected chemotherapy. * BPH: Patient reports a weak stream but feels the symptoms are well controlled on his current regimen. No episodes of urinary retention requiring catheterization. Initial vital signs in the emergency department showed temperature 98.3; pulse 77; respiratory rate 16; blood pressure 147/78; pulse oximetry 99% on room air. Physical examination in the emergency department notable for: No apparent distress; no jaundice; unremarkable cardiovascular/respiratory/abdominal exams. Patient was alert to name but uncooperative with full neurologic examination. Initial diagnostic testing revealed the following: * CBC showed WBC 7.1; hemoglobin 13.7; platelet count 70 * Coagulation profile showed PT 13.0; INR 1.3; PTT 26.6 * Chemistry profile showed sodium 143; potassium 4.3; chloride 115; CO2 20.3; anion gap 8; BUN 26; creatinine 1.33; GFR 52; glucose 126 * Liver function testing showed total bilirubin 2.1; alkaline phosphatase 119; AST 55; ALT 47; total protein 7.2; albumin 3.6 * Ammonia level was 110 * Total CK was 42 * Ethyl alcohol level was less than 3 * Urinalysis was unremarkable * Chest x-ray showed no acute disease CT of the head showed no acute intracranial abnormality The impression of the emergency room physician was that this was likely hepatic encephalopathy. Patient was dosed with lactulose and admitted to the [facility] Hospitalist service. The hospitalist noticed significant wheezing and decided to admit the patient to the intensive care unit. In addition to lactulose, the patient was given IV fluids. Oxygen and duo nebs were offered for the patient's respiratory issues. Rifaximin, Aldactone, and propranolol were continued. Apparently, the hospitalist discussed resuscitation status with available family members. Although there appeared to be agreement that the patient would not want resuscitation effort, family was unwilling at that time to agree to a DO NOT RESUSCITATE order. At time of my visit the patient is awake, alert, and oriented. He is able to answer most questions appropriately. and both sons are at the bedside. They report a remarkable improvement over night though they do not think he is quite back to baseline. History is provided by the patient, family, and the available medical record. . Function/Cognitive Trajectory Family reports that there has been a significant overall decline over the last year. He is weaker. There is more confusion. He has lost about 40 lbs. In spite of the decline, patient normally walks without any assistive device. He takes care of all of his ADLs. He gardens and does other chores around the house. . Review of Systems Constitutional: COMPLAINS OF: Weight loss, Change in appetite, Generalized weakness, DENIES: Fever, Weight gain, Night Sweats, Pain Endocrine: DENIES: Polydipsia, Polyuria, Polyphagia Eyes: COMPLAINS OF: Vision loss, DENIES: Diplopia Ears, nose, mouth, throat: COMPLAINS OF: Hearing loss, DENIES: Throat pain, Hoarseness, Ear Pain, Running Nose, Epistaxis Respiratory: COMPLAINS OF: Cough, Wheezing, Sputum production, Shortness of breath, DENIES: Apneas, Hemoptysis Cardiovascular: COMPLAINS OF: Dyspnea on Exertion, DENIES: Chest pain, Palpitations, Lower Extremity Edema Gastrointestinal: COMPLAINS OF: Diarrhea, Dyspepsia or heartburn, DENIES: Abdominal pain, Black stools, Bloody stools, Constipation, Nausea, Vomiting, Difficulty Swallowing, Anorexia Genitourinary: COMPLAINS OF: Hesitancy, Decreased stream, DENIES: Urinary incontinence, Hematuria, Dysuria Musculoskeletal: DENIES: Joint pain, Muscle aches, Back pain Integumentary: COMPLAINS OF: Rash, Tumors (Skin tumors) Hematologic/Lymphatics: COMPLAINS OF: Bruising Immunologic/Allergic: DENIES: Urticaria Neurologic: COMPLAINS OF: Poor Balance, DENIES: Abnormal gait, Headache, Seizures, Tremor Psychiatric: COMPLAINS OF: Confusion, Agitation, DENIES: Anxiety, Depression Past Family Social History Coded Allergies: cephalexin (Verified Allergy, Severe, Rash INSIDE MOUTH, 09/21/17) Past Medical History non-alcoholic steato heaptitis with cirrhosis and chronic throbmocytopenia; cutaneous squamous cell ancer; BPH; Crohn's disease; melanoma of the RUE; COPD; Biliary stones Gastroesophageal reflux disease Hiatal hernia 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 Past Surgical History Appendectomy Liver bx 07/11/15 showing steatohepatitis with cirrhosis. Colon resections in 1984 and 2003 Hernia repair Excision of melanoma from RUE Squamous cell Ca excisions Vasectomy Choelcsytecomty in 2004 Reported Medications Prehospitalization medications included the following: Rapaflo (Silodosin) 4 Mg Cap Unknown Dose PO DAILY Cialis (Tadalafil) 5 Mg Tab 5 Mg PO DAILY Spironolactone 25 Mg Tab 25 Mg PO BIDPC Xifaxan (Rifaximin) 550 Mg Tab 550 Mg PO BID Rabeprazole (Rabeprazole Sodium) 20 Mg Tab 20 Mg PO DAILY Propranolol (Propranolol HCl) 20 Mg Tab 20 Mg PO TID Mercaptopurine 50 Mg Tab 25 Mg PO DAILY Current Medications Medications (Trade) Dose Ordered Sig/Radha Route Start Time Stop Time Status Last Admin (NS Flush) 2 ml UNSCH PRN IV FLUSH 09/21/17 11:30 09/21/17 12:06 (Lactulose Liq) 30 ml QID PO 09/21/17 18:00 09/22/17 00:59 (Purinethol) 25 mg DAILY PO 09/22/17 09:00 (Inderal) 20 mg TID PO 09/21/17 18:00 09/21/17 19:59 (Xifaxan) 550 mg BID PO 09/21/17 21:00 09/22/17 00:58 (Aldactone) 25 mg BIDPC PO 09/21/17 18:00 09/21/17 19:59 (Zofran Inj) 4 mg Q6H PRN IVP 09/21/17 15:00 (Narcan Inj) 0.4 mg UNSCH PRN IV PUSH 09/21/17 15:00 (Margy-Colace) 1 tab BID PO 09/21/17 21:00 09/21/17 21:00 (Milk Of Magnesia Liq) 30 ml Q12H PRN PO 09/21/17 15:00 (Senokot) 17.2 mg Q12H PRN PO 09/21/17 15:00 (Pill Splitter) 1 ea UNSCH PRN OTHER 09/21/17 15:15 Miscellaneous Information Patient in critical care unit? Ass... [id number] .XX 09/21/17 21:15 09/21/17 21:15 (Chlorhexidine 2% Cloth) 3 pack DAILY@04 TOPICAL 09/22/17 04:00 09/26/17 04:01 09/22/17 04:00 (Chlorhexidine 2% Cloth) 3 pack UNSCH PRN TOPICAL 09/21/17 21:15 09/26/17 21:04 (Flomax) 0.4 mg DAILY PO 09/23/17 09:00 (Duoneb Neb) 1 ampule QID NEB NEB 09/22/17 08:00 09/22/17 08:03 (Duoneb Neb) 1 ampule Q2HR NEB PRN NEB 09/22/17 05:15 09/22/17 05:29 . Family History Mr. Chapman's parents are both -- both had CAD had from myocardial infarctions. There is no liver disease in the family. One sister who had diabetes. One brother is alive but has significant heart disease. One sister who is alive has cancer and osteoarthritis. . Substance Use Tobacco: Patient reports 4 cigarettes / day but rest of family insist that he smokes 1 to 1.5 ppd. He has smoked since teen years. Alcohol: Reported history of abuse. Quit approximately 6 years ago. Prescription med abuse: No known prescription drug abuse. Illicits: No known use of illicits. . Psychosocial History Mr. Chapman is originally from [place]. He has lived in [place] for about 7 years. He has a high school education. 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 Patient was once. He has been to Chante for 59 years. They have two sons -- Denis lives in [place]; Ceferino lives in [facility]. There are multiple grandchildren and some great grandchildren. . Spiritual/Cultural Factors Baptism and spirituality play an important role in his life. He is Mosque and belongs to the [facility]. His tableman has already visited him in the hospital. . Living Will: Never completed Health Care Surrogate: Never completed Durable Power of Methods Time Analyst: Never completed Date completed: Has never completed an advance directive but advance directive forms were provided to patient and family on 09/22/17 . Health Care Surrogate(s): Patient has verbally designated that he want his spouse to serve as his health care surrogate. . Documented care wishes: No written documentation of health care preferences / goals at this time. . Today's verbally stated goals: Patient has requested DNR status. He wants aggressive care short of resuscitation attempts at this time. . Family/friends goals: Spouse and sons are present and are in agreement with patient's stated wishes. . Ethical and Legal Issues Patient's encephalopathy is much improved. He is able to provide medication names and doses, doctor's names, and shows insight into his illnesses. At this time I believe he is capacitated to make his own decisions. Since confusion can wax and wane, I recommend that all important health care decision be shared decisions involving his spouse. . Physical Exam Vital Signs Date Time Temp Pulse Resp B/P (MAP) Pulse Ox O2 Delivery O2 Flow Rate FiO2 09/22/17 08:05 99 21 09/22/17 06:00 68 09/22/17 04:00 98.3 74 21 169/77 (107) 98 09/22/17 04:00 74 09/22/17 02:00 72 09/22/17 00:00 74 09/22/17 00:00 98.0 74 21 135/86 (102) 99 09/21/17 22:00 71 09/21/17 21:46 100 Nasal Cannula 2.00 09/21/17 20:00 86 09/21/17 19:01 98.6 90 28 149/66 (93) 99 09/21/17 18:12 99 Nasal Cannula 2.00 09/21/17 18:00 98.0 83 23 135/66 (89) 100 09/21/17 18:00 83 09/21/17 17:20 80 16 146/67 (93) 98 09/21/17 16:00 69 20 132/64 (86) 96 Room Air 09/21/17 15:00 83 18 155/70 (98) 96 Room Air 09/21/17 11:30 98 Room Air 09/21/17 11:25 98.3 75 18 139/66 (90) 97 . Exam CONSTITUTIONAL/GENERAL: This is a thin, frail appearing patient . He is awake, conversant in a MICU bed and in no apparent distress. TUBES/LINES/DRAINS: No 02. Peripheral IV. Coude catheter SKIN: No jaundice, rashes. Significant actinic skin damage on all sun-exposed areas. Ecchymoses on upper extremities. Skin temperature appropriate. Not diaphoretic. HEAD: Atraumatic. Normocephalic. EYES: Pupils equal and round and reactive. Extraocular motions intact. No scleral icterus. No injection or drainage. Fundi not examined. ENT: Hearing grossly normal. Nose without bleeding or purulent drainage. Throat without visible erythema, exudates, masses, or lesions. NECK: Trachea midline. Supple, nontender. No palpable thyroid enlargement or nodularity. CARDIOVASCULAR: Regular rate and rhythm without murmurs, gallops, or rubs. No JVD. Peripheral pulses symmetric. RESPIRATORY/CHEST: Symmetric, unlabored respirations. Clear to auscultation. Breath sounds equal bilaterally. No wheezes, rales, or rhonchi. Intermittent cough present. GASTROINTESTINAL: Abdomen soft, non-tender, but distended. . No hepato- splenomegaly, or palpable masses. No guarding. Bowel sounds present. GENITOURINARY: Without palpable bladder distension. MUSCULOSKELETAL: Extremities without clubbing, cyanosis, or edema. No joint tenderness or effusion noted. No calf tenderness. No mottling or clubbing. LYMPHATICS: No palpable cervical or supraclavicular adenopathy. NEUROLOGICAL: Awake and alert. Motor and sensory grossly within normal limits. Follows commands. Answers most questions appropriately. Moves all extremities. PSYCHIATRIC: No obvious anxiety/depression. no apparent hallucinations or other psychotic thought process. . Diagnostic Tests Laboratory Laboratory Tests Test 09/21/17 11:50 09/21/17 11:52 09/21/17 14:45 09/21/17 18:15 White Blood Count 7.1 TH/MM3 (4.0-11.0) Red Blood Count 4.14 MIL/MM3 (4.50-5.90) Hemoglobin 13.7 GM/DL (13.0-17.0) Hematocrit 39.2 % (39.0-51.0) Mean Corpuscular Volume 94.9 FL (80.0-100.0) Mean Corpuscular Hemoglobin 33.1 PG (27.0-34.0) Mean Corpuscular Hemoglobin Concent 34.9 % (32.0-36.0) Red Cell Distribution Width 15.2 % (11.6-17.2) Platelet Count 70 TH/MM3 (150-450) Mean Platelet Volume 7.6 FL (7.0-11.0) Neutrophils (%) (Auto) 80.4 % (16.0-70.0) Lymphocytes (%) (Auto) 12.8 % (9.0-44.0) Monocytes (%) (Auto) 4.8 % (0.0-8.0) Eosinophils (%) (Auto) 1.6 % (0.0-4.0) Basophils (%) (Auto) 0.4 % (0.0-2.0) Neutrophils # (Auto) 5.7 TH/MM3 (1.8-7.7) Lymphocytes # (Auto) 0.9 TH/MM3 (1.0-4.8) Monocytes # (Auto) 0.3 TH/MM3 (0-0.9) Eosinophils # (Auto) 0.1 TH/MM3 (0-0.4) Basophils # (Auto) 0.0 TH/MM3 (0-0.2) CBC Comment AUTO DIFF Differential Comment AUTO DIFF CONFIRMED Platelet Estimate LOW (NORMAL) Platelet Morphology Comment NORMAL (NORMAL) Ovalocytes 1+ (NORMAL) Prothrombin Time 13.0 SEC (9.8-11.6) Prothromb Time International Ratio 1.3 RATIO Activated Partial Thromboplast Time 26.6 SEC (24.3-30.1) Blood Urea Nitrogen 26 MG/DL (7-18) Creatinine 1.33 MG/DL (0.60-1.30) Random Glucose 126 MG/DL (74-106) Total Protein 7.2 GM/DL (6.4-8.2) Albumin 3.6 GM/DL (3.4-5.0) Calcium Level 8.9 MG/DL (8.5-10.1) Alkaline Phosphatase 119 U/L (45-117) Aspartate Amino Transf (AST/SGOT) 55 U/L (15-37) Alanine Aminotransferase (ALT/SGPT) 47 U/L (12-78) Total Bilirubin 2.1 MG/DL (0.2-1.0) Sodium Level 143 MEQ/L (136-145) Potassium Level 4.3 MEQ/L (3.5-5.1) Chloride Level 115 MEQ/L (98-107) Carbon Dioxide Level 20.3 MEQ/L (21.0-32.0) Anion Gap 8 MEQ/L (5-15) Estimat Glomerular Filtration Rate 52 ML/MIN (>89) Total Creatine Kinase 42 U/L (39-308) Ethyl Alcohol Level LESS THAN 3 MG/DL (0-5) Ammonia 110 MCMOL/L (11-32) Urine Color YELLOW (YELLW/STRAW) Urine Turbidity CLEAR (CLEAR) Urine pH 6.0 (5.0-8.5) Urine Specific [place] 1.018 (1.002-1.035) Urine Protein NEG mg/dL (NEG-TRACE) Urine Glucose (UA) NEG mg/dL (NEG) Urine Ketones NEG mg/dL (NEG) Urine Occult Blood NEG (NEG) Urine Nitrite NEG (NEG) Urine Bilirubin NEG (NEG) Urine Urobilinogen 2.0 MG/DL (LESS THAN Urine Leukocyte Esterase NEG (NEG) Urine RBC 1 /hpf (0-3) Urine WBC 1 /hpf (0-5) Urine Squamous Epithelial Cells <1 /hpf (0-5) Urine Hyaline Casts 3 /lpf (RARE) Microscopic Urinalysis Comment CATH-CULT NOT IND Urine Opiates Screen NEG (NEG) Urine Barbiturates Screen NEG (NEG) Urine Amphetamines Screen NEG (NEG) Urine Benzodiazepines Screen NEG (NEG) Urine Cocaine Screen NEG (NEG) Urine Cannabinoids Screen NEG (NEG) Nasal Screen MRSA (PCR) MRSA NOT DETECTED (NOT Test 09/22/17 05:08 White Blood Count 6.1 TH/MM3 (4.0-11.0) Red Blood Count 3.87 MIL/MM3 (4.50-5.90) Hemoglobin 12.9 GM/DL (13.0-17.0) Hematocrit 36.7 % (39.0-51.0) Mean Corpuscular Volume 94.9 FL (80.0-100.0) Mean Corpuscular Hemoglobin 33.2 PG (27.0-34.0) Mean Corpuscular Hemoglobin Concent 35.0 % (32.0-36.0) Red Cell Distribution Width 14.9 % (11.6-17.2) Platelet Count 65 TH/MM3 (150-450) Mean Platelet Volume 7.4 FL (7.0-11.0) Neutrophils (%) (Auto) 78.9 % (16.0-70.0) Lymphocytes (%) (Auto) 13.7 % (9.0-44.0) Monocytes (%) (Auto) 5.6 % (0.0-8.0) Eosinophils (%) (Auto) 1.4 % (0.0-4.0) Basophils (%) (Auto) 0.4 % (0.0-2.0) Neutrophils # (Auto) 4.9 TH/MM3 (1.8-7.7) Lymphocytes # (Auto) 0.8 TH/MM3 (1.0-4.8) Monocytes # (Auto) 0.3 TH/MM3 (0-0.9) Eosinophils # (Auto) 0.1 TH/MM3 (0-0.4) Basophils # (Auto) 0.0 TH/MM3 (0-0.2) CBC Comment AUTO DIFF Differential Comment AUTO DIFF CONFIRMED Platelet Estimate LOW (NORMAL) Platelet Morphology Comment NORMAL (NORMAL) Total Bilirubin 3.1 MG/DL (0.2-1.0) Direct Bilirubin 0.3 MG/DL (0.0-0.2) Indirect Bilirubin 2.8 MG/DL (0.0-0.8) Aspartate Amino Transf (AST/SGOT) 47 U/L (15-37) Alanine Aminotransferase (ALT/SGPT) 49 U/L (12-78) Alkaline Phosphatase 73 U/L (45-117) Ammonia 71 MCMOL/L (11-32) Total Protein 6.4 GM/DL (6.4-8.2) Albumin 3.2 GM/DL (3.4-5.0) Lipase 278 U/L (73-393) . Result Diagram: 09/22/17 0508 09/21/17 1150 Imaging Last Impressions Head CT 09/21/17 1129 Signed Impressions: Service Date/Time: Thursday, September 21, 2017 12:23 - CONCLUSION: No acute intracranial abnormality. Tramaine Zambrano MD Chest X-Ray 09/21/17 1129 Signed Impressions: Service Date/Time: Thursday, September 21, 2017 11:31 - CONCLUSION: No acute disease. Tramaine Zambrano MD . Patient/Family Conference Present at Family Conference: Patient; spouse; two sons -- Ceferino and Denis. . Family Conference Time (mins): 55 (55 minutes total with 20 minutes devoted to advacne care planning. ) Family Conference Location: Bedside Issues Discussed: * Palliative care role, purpose, approach * Additional medical, psychosocial, and spiritual history * Patients general health, functional status, and cognitive changes in the months leading up to the current hospitalization * Patient/family understanding of the current medical problems * Patient/family understanding of prognosis * Patients goals of medical treatment. * Current medical treatment options and benefits/burdens of those options * Questions answered to the best of my ability * Palliative care contact information provided == Advance Care Planning: Offered to discuss advance care planning with patient, spouse, and two sons. They voluntarily accepted. Discussed the importance of living tirado and health care surrogate designation. We discussed the importance on ongoing family conversation regarding what gives each person a life of meaning and purpose and what quality of life they would want to fight for even if it meant time on machines or uncomfortable procedures. Time specifically discussing advanced care planning was 20 minutes. A living will ( including health care surrogate designation) was printed out, explained, and given to patient and family to complete. . Assessment and Plan Disease Oriented Problem List: (1) Hepatic encephalopathy (2) Hepatic cirrhosis (3) Abnormal LFTs (liver function tests) (4) Hypersplenism (5) Thrombocytopenia (6) Acute kidney injury (7) COPD (chronic obstructive pulmonary disease) (8) BPH (benign prostatic hyperplasia) (9) Crohn's disease (10) Hyperammonemia Symptom Scale: (1) Pain 0-10 Scale: 0 Comment: Denies pain at this time. No chronic pain syndromes noted. . (2) Dyspnea 0-10 Scale: 0 Comment: No dyspnea while at rest in bed. Patient is life long smoker with reported history of COPD. Normally, not on 02 but has nebulizer machine at home. . (3) Diarrhea 0-10 Scale: Unable to quantify Comment: Patient normally has some loose stools due to his Crohn's disease and his two small bowel resections. Loose stools normally increased as he is updosing lactulose. Also believes bowels became loose after he was started mid- July on Nicotinamide. . (4) Confusion 0-10 Scale: 10 Comment: Confusion was quite severe during this episode. Patient now appears close to baseline. . (5) Unintended weight loss 0-10 Scale: 0 Comment: Patient has reportedly lost 40 lbs over past year. . Pertinent Non-Medical Issues Psychosocial: Spiritual: Legal: Ethical issues impacting care: Important Contacts * Chante Chapman (spouse) [phone]; [phone] * . Prognosis Patient has hepatic cirrhosis with hypersplenism and thrombocytopenia. He has been on a slow, steady decline for about a year including a 40 lb weight loss. There have been increasing episodes of confusion. His course is complicated by COPD with ongoing smoking; Crohn's disease (currently in remission); and multiple cutaneous skin cancers. As patient appears to be improving, I doubt this hospitalization signals the beginning of true end stage liver disease. Anticipate, however, that periods of encephalopathy will begin to come more frequently and be more refractory to treatment. . Code Status: No Code Plan == Code Status: Resuscitation wishes were discussed with and two sons present. Given his overall decline over the past year all were in agreement with DNR status. == Decision making: Patient's encephalopathy is much improved. He is able to provide medication names and doses, doctor's names, and shows insight into his illnesses. At this time I believe he is capacitated to make his own decisions. Since confusion can was and wane, I recommend that all important health care decision be shared decisions involving his spouse. == Goals of medical treatment: Patient desires ongoing aggressive care short of resuscitation efforts. == Symptoms * Confusion -- patient has had intermittent confusion for years and has been attributed to encephalopathy from his liver disease. This episode was one of his most severe. Confusion is improving as ammonia level is decreasing. Will continue to treat with rifaximin , lactulose. Aim for at least 2-3 semi-formed stools per day. No further recommendations at this time. * Diarrhea: Patient has some chronic loose stools due to his Crohn's and history of 2 separate small bowel excisions . He also has loose stools from his lactulose. For control of the encephalopathy, would recommend aiming for 2- 3 semi-formed bowel movements per day. * Pain: Denies pain * Unintended weight loss: Patient and family report approximately 40 lbs of unintended weight loss over the last year. == Uncertain if there are any "fixable" factors that may have contributed to the increasing encephalopathy. Some factors might include: * Patient may not have been taking all his medications as directed * Patient was started mid July on nicotinamide. At usual doses, this is felt to help liver disease. However, at higher doses may further injure the liver. Probably want to check current dosing. Patient says he has had increased loose stools since starting this. * For 6 weeks patient's eyeglass assembler has been injecting some type of "chemo" into squamous cell lesions. May want to check what type of "chemo" this is and if local injections could conceivably impact patient's underlying liver disease. == Patient is currently smoking. Family reports he is smoking 1 to 1.5 ppd which is more than the patient admits to. Patient was counseled to stop. == Advance Care Planning: Offered to discuss advance care planning with patient, spouse, and two sons. They voluntarily accepted. Discussed the importance of living [place] and health care surrogate designation. We discussed the importance on ongoing family conversation regarding what gives each person a life of meaning and purpose and what quality of life they would want to fight for even if it meant time on machines or uncomfortable procedures. Time specifically discussing advanced care planning was 20 minutes. A living will ( including health care surrogate designation) was printed out, explained, and given to patient and family to complete. == Disposition: Anticipate patient will be discharged home when he leaves the hospital. Recommend that patient's supervise medications. Would encourage adjustment of lactulose to ensure at least 2-3 semi-formed bowel movements per day. == Palliative care will continue to follow to assist with symptom management and to further clarify goals of medical treatment as the clinical course evolves. . Thank you for the opportunity to participate in the care of Mr. Chapman. . . Attestation To help prompt me to consider important information that might be impacting today's encounter and assessment, information from prior notes written by myself or my colleagues may have been "brought forward" into today's note. My signature on this note, however, is an attestation that I personally performed the exam, history, and/or decision-making noted today, and, unless otherwise indicated, the interactions with patient, family, and staff as well as the review of records all occurred today. I also attest that the listed assessment and stated plan reflect my best clinical judgment today based on the combination of historical information, prior notes, and today's exam/ interactions. When time spent is documented, it refers only to time spent today by the signer, or if indicated, combined time spent today by collaborating physician/nurse practitioner. . . Arturo Bynum MD Sep 22, 2017 10:23
[2017-09-22] MEDS: PROPRANOLOL HCL 20 MG TAB PO SCH ×2 (13:13→17:51)
--- NOTE | 2017-09-22 14:27 | HHI.PR ---
Subjective Remarks 82 years old male with history of liver cirrhosis, Burns, also history of alcoholism quit about 6 years ago, thrombocytopenia hypersplenism, multiple continuous squamous cell cancer, presented to the ED with a change of mental status. I saw the patient with family at the bedside his and his son, patient was open eyes however he was unable to answer questions coherently he was constantly answering with "Irving" which is his called me first name. He stated patient started couple of days ago to be this which got worse and today, per the ED physician patient was able to answer questions when she saw him. I discussed with the family patient seems to be having previous mucus oral bleeding on his lips, I reviewed his medical record he has a history of thrombocytopenia for which he sees Dr. Luis. I discussed with the family the CODE STATUS, the dose voice the patient's wishes to be DO NOT RESUSCITATE however they were not ready to make it official as an order, and they ended up wanting him to be full code at this point therefore in view to his increased ammonia that was found and fragility on top of his excessive wheezing I will admit him to the ICU to monitor for the first 24 hours. General no further history could be obtained from the patient or his family they told me he used to be alcoholic but he quit over 6 years ago he is a current smoker. 09-22 patient is much more alert today patient does not always take all his medications correctly States he forgets his rifaximin quite frequently Discussed with RN and patient and family will get physical therapy and occupational therapy to eval and treat AM LABS CONSULT GI Objective Vitals Vital Signs Date Time Temp Pulse Resp B/P (MAP) Pulse Ox O2 Delivery O2 Flow Rate FiO2 09/22/17 10:00 77 09/22/17 08:05 99 21 09/22/17 08:00 98.1 86 17 140/63 (88) 98 09/22/17 08:00 86 09/22/17 06:00 68 09/22/17 04:00 98.3 74 21 169/77 (107) 98 09/22/17 04:00 74 09/22/17 02:00 72 09/22/17 00:00 74 09/22/17 00:00 98.0 74 21 135/86 (102) 99 09/21/17 22:00 71 09/21/17 21:46 100 Nasal Cannula 2.00 09/21/17 20:00 86 09/21/17 19:01 98.6 90 28 149/66 (93) 99 09/21/17 18:12 99 Nasal Cannula 2.00 09/21/17 18:00 98.0 83 23 135/66 (89) 100 09/21/17 18:00 83 09/21/17 17:20 80 16 146/67 (93) 98 09/21/17 16:00 69 20 132/64 (86) 96 Room Air 09/21/17 15:00 83 18 155/70 (98) 96 Room Air I/O 09/21/17 09/21/17 09/21/17 09/22/17 09/22/17 09/22/17 07:00 15:00 23:00 07:00 15:00 23:00 Intake Total 500 ml Output Total 400 ml 0 ml 850 ml Balance -400 ml 500 ml -850 ml Intake IV Total 500 ml Output Urine Total 400 ml 0 ml 450 ml Stool Total 400 ml # Voids 1 2 # Bowel Movements 1 0 3 Result Diagram: 09/22/17 0508 09/21/17 1150 Other Results Laboratory Tests Test 09/21/17 11:50 09/21/17 11:52 09/21/17 14:45 09/21/17 18:15 White Blood Count 7.1 TH/MM3 Red Blood Count 4.14 MIL/MM3 Hemoglobin 13.7 GM/DL Hematocrit 39.2 % Mean Corpuscular Volume 94.9 FL Mean Corpuscular Hemoglobin 33.1 PG Mean Corpuscular Hemoglobin Concent 34.9 % Red Cell Distribution Width 15.2 % Platelet Count 70 TH/MM3 Mean Platelet Volume 7.6 FL Neutrophils (%) (Auto) 80.4 % Lymphocytes (%) (Auto) 12.8 % Monocytes (%) (Auto) 4.8 % Eosinophils (%) (Auto) 1.6 % Basophils (%) (Auto) 0.4 % Neutrophils # (Auto) 5.7 TH/MM3 Lymphocytes # (Auto) 0.9 TH/MM3 Monocytes # (Auto) 0.3 TH/MM3 Eosinophils # (Auto) 0.1 TH/MM3 Basophils # (Auto) 0.0 TH/MM3 CBC Comment AUTO DIFF Differential Comment AUTO DIFF CONFIRMED Platelet Estimate LOW Platelet Morphology Comment NORMAL Ovalocytes 1+ Prothrombin Time 13.0 SEC Prothromb Time International Ratio 1.3 RATIO Activated Partial Thromboplast Time 26.6 SEC Blood Urea Nitrogen 26 MG/DL Creatinine 1.33 MG/DL Random Glucose 126 MG/DL Total Protein 7.2 GM/DL Albumin 3.6 GM/DL Calcium Level 8.9 MG/DL Alkaline Phosphatase 119 U/L Aspartate Amino Transf (AST/SGOT) 55 U/L Alanine Aminotransferase (ALT/SGPT) 47 U/L Total Bilirubin 2.1 MG/DL Sodium Level 143 MEQ/L Potassium Level 4.3 MEQ/L Chloride Level 115 MEQ/L Carbon Dioxide Level 20.3 MEQ/L Anion Gap 8 MEQ/L Estimat Glomerular Filtration Rate 52 ML/MIN Total Creatine Kinase 42 U/L Ethyl Alcohol Level LESS THAN 3 MG/DL Ammonia 110 MCMOL/L Urine Color YELLOW Urine Turbidity CLEAR Urine pH 6.0 Urine Specific [place] 1.018 Urine Protein NEG mg/dL Urine Glucose (UA) NEG mg/dL Urine Ketones NEG mg/dL Urine Occult Blood NEG Urine Nitrite NEG Urine Bilirubin NEG Urine Urobilinogen 2.0 MG/DL Urine Leukocyte Esterase NEG Urine RBC 1 /hpf Urine WBC 1 /hpf Urine Squamous Epithelial Cells <1 /hpf Urine Hyaline Casts 3 /lpf Microscopic Urinalysis Comment CATH-CULT NOT IND Urine Opiates Screen NEG Urine Barbiturates Screen NEG Urine Amphetamines Screen NEG Urine Benzodiazepines Screen NEG Urine Cocaine Screen NEG Urine Cannabinoids Screen NEG Nasal Screen MRSA (PCR) MRSA NOT DETECTED Test 09/22/17 05:08 White Blood Count 6.1 TH/MM3 Red Blood Count 3.87 MIL/MM3 Hemoglobin 12.9 GM/DL Hematocrit 36.7 % Mean Corpuscular Volume 94.9 FL Mean Corpuscular Hemoglobin 33.2 PG Mean Corpuscular Hemoglobin Concent 35.0 % Red Cell Distribution Width 14.9 % Platelet Count 65 TH/MM3 Mean Platelet Volume 7.4 FL Neutrophils (%) (Auto) 78.9 % Lymphocytes (%) (Auto) 13.7 % Monocytes (%) (Auto) 5.6 % Eosinophils (%) (Auto) 1.4 % Basophils (%) (Auto) 0.4 % Neutrophils # (Auto) 4.9 TH/MM3 Lymphocytes # (Auto) 0.8 TH/MM3 Monocytes # (Auto) 0.3 TH/MM3 Eosinophils # (Auto) 0.1 TH/MM3 Basophils # (Auto) 0.0 TH/MM3 CBC Comment AUTO DIFF Differential Comment AUTO DIFF CONFIRMED Platelet Estimate LOW Platelet Morphology Comment NORMAL Total Bilirubin 3.1 MG/DL Direct Bilirubin 0.3 MG/DL Indirect Bilirubin 2.8 MG/DL Aspartate Amino Transf (AST/SGOT) 47 U/L Alanine Aminotransferase (ALT/SGPT) 49 U/L Alkaline Phosphatase 73 U/L Ammonia 71 MCMOL/L Total Protein 6.4 GM/DL Albumin 3.2 GM/DL Lipase 278 U/L Imaging Last Impressions Head CT 09/21/171128 Signed Impressions: Service Date/Time: Thursday, September 21, 2017 12:23 - CONCLUSION: No acute intracranial abnormality. Tramaine Zambrano MD Chest X-Ray 09/21/171128 Signed Impressions: Service Date/Time: Thursday, September 21, 2017 11:31 - CONCLUSION: No acute disease. Tramaine Zambrano MD Objective Remarks GENERAL: Awake alert and oriented 3 talkative and cooperative SKIN: Warm and dry. HEAD: Atraumatic. Normocephalic. EYES: Pupils equal and round. No scleral icterus. No injection or drainage. Extraocular muscles intact ENT: No nasal bleeding or discharge. Mucous membranes pink and moist. Tongue is midline NECK: Trachea midline. No JVD. Supple S1-S2 no S3 or S4 CARDIOVASCULAR: Regular rate and rhythm. RESPIRATORY: No accessory muscle use. Clear to auscultation. Breath sounds equal bilaterally. GASTROINTESTINAL: Abdomen soft, non-tender, nondistended. Hepatic and splenic margins not palpable. MUSCULOSKELETAL: Extremities without clubbing, cyanosis, or edema. No obvious deformities. NEUROLOGICAL: Awake and alert. No obvious cranial nerve deficits. Motor grossly within normal limits. Five out of 5 muscle strength in the arms and legs. Normal speech. PSYCHIATRIC: Appropriate mood and affect; insight and judgment normal. Procedures NONE Medications and IVs Current Medications Sodium Chloride (NS Flush) 2 ml UNSCH PRN IV FLUSH FLUSH AFTER USING IV ACCESS Last administered on 09/21/17at 12:06; Start 09/21/17 at 11:30 Lactulose (Lactulose Liq) 30 ml ONCE ONCE PO Last administered on 09/21/17at 14 :59; Start 09/21/17 at 13:15; Stop 09/21/17 at 13:16; Status DC Sodium Chloride 500 ml @ 500 mls/hr BOLUS ONCE IV Last administered on at 14:59; Start 09/21/17 at 14:30; Stop 09/21/17 at 15:29; Status DC Lactulose (Lactulose Liq) 30 ml QID PO Last administered on 09/22/17at 13:13; Start 09/21/17 at 18:00 Mercaptopurine (Purinethol) 25 mg DAILY PO ; Start 09/22/17 at 09:00 Propranolol HCl (Inderal) 20 mg TID PO Last administered on 09/22/17 13:13; Start 09/21/17 at 18:00 Rifaximin (Xifaxan) 550 mg BID PO Last administered on 09/22/17at 00:58; Start 09/21/17 at 21:00 Spironolactone (Aldactone) 25 mg BIDPC PO Last administered on 09/21/17at 19:59 ; Start 09/21/17 at 18:00 Ondansetron HCl (Zofran Inj) 4 mg Q6H PRN IVP NAUSEA OR VOMITING; Start at 15:00 Heparin Sodium (Porcine) (Heparin Inj) 5,000 units Q8H SQ Last administered on 09/22/17at 00:58; Start 09/21/17 at 15:00; Stop 09/22/17 at 05:06; Status DC Naloxone HCl (Narcan Inj) 0.4 mg UNSCH PRN IV PUSH SEE LABEL COMMENTS; Start at 15:00 Senna/Docusate Sodium (Margy-Colace) 1 tab BID PO Last administered on at 21:00; Start 09/21/17 at 21:00 Magnesium Hydroxide (Milk Of Magnesia Liq) 30 ml Q12H PRN PO Mild constipation ; Start 09/21/17 at 15:00 Sennosides (Senokot) 17.2 mg Q12H PRN PO Moderate constipation; Start 09/21/17 at 15:00 Sodium Chloride 1,000 ml @ 42 mls/hr [id number] IV Last administered on at 04:56; Start 09/21/17 at 16:00; Stop 09/22/17 at 05:09; Status DC Miscellaneous (Pill Splitter) 1 ea UNSCH PRN OTHER SEE LABEL COMMENTS; Start at 15:15 Albuterol/ Ipratropium (Duoneb Neb) 1 ampule Q6HR NEB NEB Last administered on 09/21/17at 21:46; Start 09/21/17 at 22:00; Stop 09/22/17 at 05:09; Status DC Albuterol/ Ipratropium (Duoneb Neb) 1 ampule Q2HR NEB PRN NEB wheeze Last administered on 09/22/17at 01:17; Start 09/21/17 at 20:15; Stop 09/22/17 at 05:09 ; Status DC Miscellaneous Information Patient in critical care unit? Ass... [id number] Last administered on 09/21/17at 21:15; Start 09/21/17 at 21:15 Chlorhexidine Gluconate (Chlorhexidine 2% Cloth) 3 pack DAILY@04 TOPICAL Last administered on 09/22/17at 04:00; Start 09/22/17 at 04:00; Stop 09/26/17 at 04:01 Chlorhexidine Gluconate (Chlorhexidine 2% Cloth) 3 pack UNSCH PRN TOPICAL HYGIENIC CARE; Start 09/21/17 at 21:15; Stop 09/26/17 at 21:04 Tamsulosin HCl (Flomax) 0.4 mg DAILY PO ; Start 09/23/17 at 09:00 Tamsulosin HCl (Flomax) 0.4 mg ONCE ONCE PO Last administered on 09/22/17at 05: 07; Start 09/22/17 at 04:00; Stop 09/22/17 at 04:01; Status DC Albuterol/ Ipratropium (Duoneb Neb) 1 ampule QID NEB NEB Last administered on 09/22/17at 11:02; Start 09/22/17 at 08:00 Albuterol/ Ipratropium (Duoneb Neb) 1 ampule Q2HR NEB PRN NEB short of breath Last administered on 09/22/17at 05:29; Start 09/22/17 at 05:15 A/P Assessment and Plan 82 years old male admitted with change in mental status Change in mental status Toxic metabolic encephalopathy/hepatic encephalopathy Hyperammonemia LULU Liver cirrhosis mostly due to alcoholism and Burns Metabolic acidosis History of thrombocytopenia due to liver cirrhosis and hypersplenism DVT prophylaxis with SCD will avoid heparin at this point due to pancytopenia Plan: We will admit for full admission but in the ICU for the first 24 hours patient continued to be full code per the family O2 DuoNeb Lactulose 30 mL every 6 hours repeat ammonia level in a.m. Repeat BMP in a.m. IV fluids very cautiously half liter Continue rifaximin, Aldactone, propranolol Consult palliative care Consider GI Dr. Callahan who is a patient GI specialist, SCD for DVT prophylaxis DIETARY CONSULT Discharge Planning PT and OT Korey Quesada DO Sep 22, 2017 14:27
--- NOTE | 2017-09-22 17:33 | MB ---
cc: Ilya Benitez MD, Louis M MD Moulis,Karthikeyan DIOR DATE: 09/22/2017 REFERRING PHYSICIAN: Dr. Georgina Castro REASON FOR CONSULTATION: Hepatic encephalopathy. HISTORY OF PRESENT ILLNESS: Mr. Chapman is a pleasant 82-year-old male who was admitted yesterday with altered mental status. The patient has a history of liver cirrhosis associated with hypersplenism and thrombocytopenia. According to the chart, he is a prior heavy drinker. He has been followed by Dr. Rojas for liver disease and for history of Crohn's disease. The patient had an elevated ammonia level on admission and was started on lactulose 4 times a day and Xifaxan. He is currently very lucid, alert and well oriented and answers questions appropriately. He states he feels great. On further questioning, he denies any recent symptoms of infection or abdominal pain. He states he recently underwent an endoscopy and colonoscopy with Dr. Rojas. He does have a history of Crohn's disease and states he was on maintenance 6-MP up until a few months ago, at which time it was discontinued. The patient also admits that he does not like taking lactulose because it gives him diarrhea. He normally has 2-3 loose bowel movements a day. He takes 1 capful of lactulose at bedtime and he admits that he has not been compliant with his Xifaxan. He did not seem to understand the purpose of it. He states that recently his has taken over giving him his medications. SOCIAL HISTORY: The patient is . He is retired. He does have a history, according to the chart, of heavy alcohol use up until about 6 years ago. He also has a smoking history of 1-2 packs per day. PAST MEDICAL HISTORY: Remarkable for skin cancers, mostly squamous ricardo, but also melanoma, history of GERD controlled with a proton pump inhibitor, history of Crohn's disease, history of liver cirrhosis, history of BPH and COPD. ALLERGIES: HE IS ALLERGIC TO CEPHALEXIN. FAMILY HISTORY: Negative for colon cancer or liver disease. There is a strong family history of heart disease and 1 sister had diabetes. PAST SURGICAL HISTORY: He has had a prior appendectomy. He had a liver biopsy in 2016 that showed steatohepatitis with cirrhosis. He had bowel resections in 1984 and 2003 for his Crohn's disease. He has had a hernia repair. He has had several skin cancers removed including a melanoma from the right upper extremity, prior cholecystectomy and vasectomy. MEDICATIONS AT HOME: 1. Rapaflo 4 mg daily. 2. Cialis 5 mg daily. 3. Spironolactone 25 mg twice a day. 4. Rifaximin 550 mg twice a day. 5. Aciphex 20 mg daily. 6. Propranolol 20 mg 3 times a day 7. 6-MP 50 mg 1/2 pill daily up until a few months ago. REVIEW OF SYSTEMS: He denies any coughing or shortness of breath. No recent fever or chills. No abdominal pain. He denies any visible blood in the stool. He states he had a recent colonoscopy and upper endoscopy with Dr. Rojas. He denies any other signs or symptoms of infection. He states he tries to stay active in his [employer]. PHYSICAL EXAMINATION: GENERAL: Reveals a well-developed male in no acute distress. VITAL SIGNS: His blood pressure is 147/65, pulse 80, respirations are 18 and unlabored, temperature is 97.9 orally. HEENT: Sclerae are anicteric. NECK: Supple without masses. LUNGS: Grossly clear. HEART: Sounds regular rate and rhythm without significant murmur, gallop or rub. ABDOMEN: Soft and nontender. He does have hepatomegaly with a firm, nontender liver edge approximately 5 fingerbreadths below the right costal margin. No definite ascites. No tenderness. EXTREMITIES: He has some bruising and superficial excoriations on his extremities.. No peripheral edema. NEUROLOGIC: He was alert and oriented x3 with no gross asterixis. IMAGING STUDIES: Chest x-ray showed no acute disease. His head CT scan showed no acute intracranial abnormality. LABORATORY DATA: His hemoglobin is 12.9, platelet count 65,000, white count 6.1 with a slight left shift. INR is 1.3. BUN 26 with a creatinine of 1.33, total bilirubin 3.1, AST 47, ALT 49, alkaline phosphatase 73. Ammonia level yesterday was 110 and this morning was down to 71. Albumin 3.2. Lipase was normal at 278. Urinalysis was unremarkable. IMPRESSION: 1. Liver cirrhosis with history of hepatic encephalopathy. We will check his office chart for any past history of esophageal varices. 2. Hepatic encephalopathy. I do not detect any precipitating factors. Stool can be checked if heme positive. I do not detect any precipitating factors such as significant electrolyte abnormalities, infections or signs of significant gastrointestinal bleeding. I suspect, based on his history, that his exacerbations are most likely due to noncompliance with his medications. 3. History of Crohn's disease. The patient states he would like to go back on 6-MP. We will discuss this with Dr. Rojas. PLAN: Agree with current management. He is having a lot of bowel movements, so we will likely need to cut back his lactulose. He certainly is not going to take that much at home. I discussed with him the mechanism of action of Xifaxan and the importance of him taking that twice a day. I reinforced that taking his Xifaxan on a regular basis will likely reduce his need for lactulose as he is concerned about the diarrhea, especially attending [employer] activities during the day. He states he has a followup appointment in the near future with our PA, Alesia Ac, so I encouraged him to keep that appointment. From my standpoint, the patient could be discharged home on Xifaxan and a reduced dose of lactulose in the next day or two. Thank you for this consult. MD SANDRA Gomes/ , 04:57 PM , 05:32 PM DON
[2017-09-22] MEDS: SPIRONOLACTONE 25 MG TAB PO SCH ×2 (17:51→18:10)
[2017-09-22] MEDS: PANTOPRAZOLE SOD 40 MG DELAYED RELEASE TAB PO SCH (18:10)
[2017-09-22] MEDS: MERCAPTOPURINE 50 MG TAB PO SCH (18:10)
[2017-09-22] MEDS: SODIUM CHLORIDE 0.9% FLUSH 10 ML FLUSH IV FLUSH PRN (22:45)
[2017-09-23] VITALS (8 sets, daily range): BP systolic 120–150; BP diastolic 60–67; PULSE 75–86; RESP 14–22; TEMP 97.9–99; O2SAT 96–98
[2017-09-23] MEDS: CHLORHEXIDINE GLUCONATE 2 % 1 PACK (2 CLOTHS)(taper/protocol) TOPICAL SCH (04:00)
[2017-09-23] MEDS: RESP: ALBUTEROL 2.5 MG/IPRATROPIUM 0.5 MG NEB (SCH) NEB ×4 (07:41→20:56)
[2017-09-23] MEDS: DOCUSATE SODIUM 50 MG/SENNA 8.6 MG TAB PO SCH (08:21)
[2017-09-23] MEDS: PANTOPRAZOLE SOD 40 MG DELAYED RELEASE TAB PO SCH (08:21)
[2017-09-23] MEDS: TAMSULOSIN HCL 0.4 MG CAP PO SCH (08:21)
[2017-09-23] MEDS: SODIUM CHLORIDE 0.9% FLUSH 10 ML FLUSH IV FLUSH PRN (08:21)
[2017-09-23] MEDS: RIFAXIMIN 550 MG TAB PO SCH ×2 (08:21→22:32)
[2017-09-23] MEDS: PROPRANOLOL HCL 20 MG TAB PO SCH ×3 (08:21→17:06)
[2017-09-23] MEDS: LACTULOSE SYRUP 20 GM/30 ML CUP PO SCH ×2 (08:22→22:32)
[2017-09-23 08:24] LABS: AUTOMATED NEUTROPHIL # 7.7 TH/MM3 (1.8-7.7); BASOPHIL % 0.3 % (0.0-2.0); EOSINOPHIL % 0.5 % (0.0-4.0); HEMATOCRIT 37.3 % (39.0-51.0); HEMOGLOBIN 13.1 GM/DL (13.0-17.0); LYMPH % 7.2 % (9.0-44.0); LYMPHOCYTE # 0.6 TH/MM3 (1.0-4.8); MEAN CELL VOLUME 95.3 FL (80.0-100.0); MEAN CORPUSCULAR HEMOGLOBIN 33.6 PG (27.0-34.0); MEAN CORPUSCULAR HGB CONC 35.2 % (32.0-36.0); MEAN PLATELET VOLUME 7.4 FL (7.0-11.0); MONOCYTE # 0.4 TH/MM3 (0-0.9); PLATELET COUNT 50 TH/MM3 (150-450); RED BLOOD COUNT 3.91 MIL/MM3 (4.50-5.90); RED CELL DISTRIBUTION WIDTH 14.6 % (11.6-17.2); WHITE BLOOD COUNT 8.9 TH/MM3 (4.0-11.0)
[2017-09-23] MEDS: SPIRONOLACTONE 25 MG TAB PO SCH ×2 (08:26→17:06)
[2017-09-23] MEDS: MERCAPTOPURINE 50 MG TAB PO SCH (08:27)
[2017-09-23 08:31] LABS: INTERNATIONAL NORMALIZED RATIO 1.4 RATIO; PROTHROMBIN TIME - PATIENT 13.7 SEC (9.8-11.6)
[2017-09-23 08:53] LABS: ALBUMIN 3.2 GM/DL (3.4-5.0); ALT (GPT) 41 U/L (12-78); AST (GOT) 32 U/L (15-37); BLOOD UREA NITROGEN 22 MG/DL (7-18); CALCIUM 8.6 MG/DL (8.5-10.1); CHLORIDE 116 MEQ/L (98-107); CREATININE 1.29 MG/DL (0.60-1.30); GLOMERULAR FILTRATION RATE 54 ML/MIN (>89); GLUCOSE,RANDOM 118 MG/DL (74-106); MAGNESIUM 1.3 MG/DL (1.5-2.5); PHOSPHORUS 2.5 MG/DL (2.5-4.9); SODIUM (NA) 144 MEQ/L (136-145)
[2017-09-23 09:02] LABS: ALKALINE PHOSPHATASE 61 U/L (45-117); FREE T4 1.18 NG/DL (0.76-1.46); TOTAL BILIRUBIN ADULT 4.7 MG/DL (0.2-1.0); TOTAL PROTEIN 6.3 GM/DL (6.4-8.2)
[2017-09-23 09:11] LABS: KERATOCYTES OCC (NORMAL); OVALOCYTES 1+ (NORMAL)
--- NOTE | 2017-09-23 12:39 | HHI.GIFU ---
GI Follow-up Note Consult Follow-up Subjective: Patient laying in bed comfortably, no new complaints except having diarrhea from lactulose. at bedside. 6MP restarted. Was held recently because of concern over his skin cancer hx. Appetite poor. Objective: PHYSICAL EXAMINATION: Vitals signs stable No fever ABDOMEN: Soft, a little more distended but nontender. EXTREMITIES: No clubbing, cyanosis, or edema. SKIN: warm and dry PRODUCT MARKETING MANAGER: alert but a little less oriented today. Available Data (labs, X- Rays, Procedues) : Laboratory Tests Test 09/21/17 11:50 09/21/17 11:52 09/21/17 14:45 09/21/17 18:15 Red Blood Count 4.14 MIL/MM3 (4.50-5.90) Platelet Count 70 TH/MM3 (150-450) Neutrophils (%) (Auto) 80.4 % (16.0-70.0) Lymphocytes # (Auto) 0.9 TH/MM3 (1.0-4.8) Platelet Estimate LOW (NORMAL) Ovalocytes 1+ (NORMAL) Prothrombin Time 13.0 SEC (9.8-11.6) Blood Urea Nitrogen 26 MG/DL (7-18) Creatinine 1.33 MG/DL (0.60-1.30) Random Glucose 126 MG/DL (74-106) Alkaline Phosphatase 119 U/L (45-117) Aspartate Amino Transf (AST/SGOT) 55 U/L (15-37) Total Bilirubin 2.1 MG/DL (0.2-1.0) Chloride Level 115 MEQ/L (98-107) Carbon Dioxide Level 20.3 MEQ/L (21.0-32.0) Estimat Glomerular Filtration Rate 52 ML/MIN (>89) Ammonia 110 MCMOL/L (11-32) Test 09/22/17 05:08 09/23/17 07:52 Red Blood Count 3.87 MIL/MM3 (4.50-5.90) 3.91 MIL/MM3 (4.50-5.90) Hemoglobin 12.9 GM/DL (13.0-17.0) Hematocrit 36.7 % (39.0-51.0) 37.3 % (39.0-51.0) Platelet Count 65 TH/MM3 (150-450) 50 TH/MM3 (150-450) Neutrophils (%) (Auto) 78.9 % (16.0-70.0) 87.0 % (16.0-70.0) Lymphocytes # (Auto) 0.8 TH/MM3 (1.0-4.8) 0.6 TH/MM3 (1.0-4.8) Platelet Estimate LOW (NORMAL) LOW (NORMAL) Total Bilirubin 3.1 MG/DL (0.2-1.0) 4.7 MG/DL (0.2-1.0) Direct Bilirubin 0.3 MG/DL (0.0-0.2) Indirect Bilirubin 2.8 MG/DL (0.0-0.8) Aspartate Amino Transf (AST/SGOT) 47 U/L (15-37) Ammonia 71 MCMOL/L (11-32) 87 MCMOL/L (11-32) Albumin 3.2 GM/DL (3.4-5.0) 3.2 GM/DL (3.4-5.0) Lymphocytes (%) (Auto) 7.2 % (9.0-44.0) Ovalocytes 1+ (NORMAL) Prothrombin Time 13.7 SEC (9.8-11.6) Blood Urea Nitrogen 22 MG/DL (7-18) Random Glucose 118 MG/DL (74-106) Total Protein 6.3 GM/DL (6.4-8.2) Magnesium Level 1.3 MG/DL (1.5-2.5) Chloride Level 116 MEQ/L (98-107) Carbon Dioxide Level 19.0 MEQ/L (21.0-32.0) Estimat Glomerular Filtration Rate 54 ML/MIN (>89) ASSESSMENT/PLAN: 1. Hepatic encephalopathy-rec reduce lactulose to avoid diarrhea. Goal is 2-3 soft stools/day. 2. Cirrhosis-concerned about rising bilirubin. Will check ultrasound. 3. Crohn's Agree he can transfer to floor It was a pleasure seeing Denis Chapman. Thank you for this consult. Entered by: Ilya Pickard MD Sep 23, 2017 12:39
--- NOTE | 2017-09-23 18:14 | RADRPT ---
EXAM DATE/TIME: 09/23/2017 17:01 [facility] COMPARISON: No previous studies available for comparison. INDICATIONS : Abnormal labs. MEDICAL HISTORY : Hypertension. Chronic obstructive pulmonary disease. Hearing loss. Dyspnea. Ulcer. Hiatal hernia. E nlarged prostate. Kidney stones. Liver disease. Crohns disease. Squamous cell skin cancer. SURGICAL HISTORY : Tonsillectomy. Cholecystectomy. Appendectomy. Small bowel resection x2. ENCOUNTER: Initial ACUITY: 1 day PAIN SCORE: 0/10 LOCATION: Bilateral upper quadrant MEASUREMENTS: LIVER: 13.1 cm length COMMON DUCT: 4 mm RIGHT KIDNEY: 10.5 x 5.5 x 4.7 cm SPLEEN: 16.8 cm length FINDINGS: LIVER: Small and heterogeneous liver. No focal hepatic lesion demonstrated. No biliary distention. There is small perihepatic ascites. There is normal flow velocity and direction in the main portal vein. COMMON DUCT: No intraluminal mass or stone visualized. GALLBLADDER: Previous cholecystectomy. PANCREAS: The visualized portions are within normal limits. RIGHT KIDNEY: No hydronephrosis, stone or mass. SPLEEN: No focal lesion. CONCLUSION: 1. Cirrhotic liver. Splenomegaly and trace ascites. 2. No acute or focal abnormality demonstrated. Saji Cevallos MD on September 23, 2017 at 18:10 Board Certified Radiologist. This report was verified electronically.
[2017-09-23 19:05] LABS: HEMOGLOBIN A1C 4.4 % (4.3-6.0)
--- NOTE | 2017-09-23 23:54 | HHI.PR ---
Subjective Remarks Patient says he is feeling better.mental status improved. Objective Vital Signs Date Time Temp Pulse Resp B/P (MAP) Pulse Ox O2 Delivery O2 Flow Rate FiO2 09/23/17 20:56 96 21 09/23/17 20:00 98.0 86 14 120/60 (80) 98 09/23/17 16:00 98.8 82 18 150/65 (93) 98 09/23/17 16:00 82 09/23/17 12:00 99.0 76 18 150/65 (93) 96 09/23/17 12:00 76 09/23/17 08:00 81 09/23/17 08:00 98.6 81 18 145/67 (93) 98 09/23/17 07:42 97 21 09/23/17 04:00 75 09/23/17 04:00 82 20 149/66 (93) 96 09/23/17 00:00 97.9 76 22 125/60 (81) 97 09/23/17 00:00 76 I/O 09/23/17 09/23/17 09/23/17 09/24/17 09/24/17 09/24/17 07:00 15:00 23:00 07:00 15:00 23:00 Intake Total 480 ml Output Total 300 ml Balance 180 ml Intake Oral 480 ml Output Urine Total 300 ml # Bowel Movements 1 Result Diagram: 09/23/17 0752 09/23/17 0752 A/P Assessment and Plan ========09/23/17. ======= Mental status improved. Discussed with and nurse. Will increase lactulose to twice daily. Appreciate GI assistance. 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 Repeat BMP in a.m. IV fluids very cautiously half liter Continue rifaximin, Aldactone, propranolol Consult palliative care Consider GI Dr. Callahan who is a patient GI specialist, SCD for DVT prophylaxis DIETARY CONSULT Negro Tompkins MD Sep 23, 2017 23:54
[2017-09-24] VITALS: BP 120/62; PULSE 84; RESP 14; TEMP 98.1; O2SAT 98
[2017-09-24] MEDS: CHLORHEXIDINE GLUCONATE 2 % 1 PACK (2 CLOTHS)(taper/protocol) TOPICAL SCH (03:26)
[2017-09-24 07:33] VITALS: O2SAT 95
[2017-09-24] MEDS: RESP: ALBUTEROL 2.5 MG/IPRATROPIUM 0.5 MG NEB (SCH) NEB ×2 (07:33→11:55)
[2017-09-24 08:00] VITALS: BP 128/60; PULSE 63; RESP 18; TEMP 98.4; O2SAT 95
[2017-09-24 08:01] LABS: AUTOMATED NEUTROPHIL # 5.1 TH/MM3 (1.8-7.7); BASOPHIL % 0.2 % (0.0-2.0); EOSINOPHIL # 0.1 TH/MM3 (0-0.4); HEMATOCRIT 32.9 % (39.0-51.0); HEMOGLOBIN 11.6 GM/DL (13.0-17.0); LYMPH % 11.4 % (9.0-44.0); LYMPHOCYTE # 0.7 TH/MM3 (1.0-4.8); MEAN CELL VOLUME 95.3 FL (80.0-100.0); MEAN CORPUSCULAR HEMOGLOBIN 33.6 PG (27.0-34.0); MEAN CORPUSCULAR HGB CONC 35.2 % (32.0-36.0); MEAN PLATELET VOLUME 7.9 FL (7.0-11.0); MONO % 7.9 % (0.0-8.0); MONOCYTE # 0.5 TH/MM3 (0-0.9); NEUT % 79.5 % (16.0-70.0); PLATELET COUNT 43 TH/MM3 (150-450); RED BLOOD COUNT 3.45 MIL/MM3 (4.50-5.90); RED CELL DISTRIBUTION WIDTH 14.4 % (11.6-17.2); WHITE BLOOD COUNT 6.5 TH/MM3 (4.0-11.0)
[2017-09-24 08:30] LABS: ALBUMIN 2.6 GM/DL (3.4-5.0); BICARBONATE 18.3 MEQ/L (21.0-32.0); CREATININE 1.29 MG/DL (0.60-1.30); MAGNESIUM 1.3 MG/DL (1.5-2.5); PHOSPHORUS 2.6 MG/DL (2.5-4.9)
[2017-09-24 08:35] LABS: OVALOCYTES 1+ (NORMAL)
[2017-09-24] MEDS: RIFAXIMIN 550 MG TAB PO SCH (09:25)
[2017-09-24] MEDS: TAMSULOSIN HCL 0.4 MG CAP PO SCH (09:26)
[2017-09-24] MEDS: MERCAPTOPURINE 50 MG TAB PO SCH (09:32)
[2017-09-24] MEDS: PANTOPRAZOLE SOD 40 MG DELAYED RELEASE TAB PO SCH (09:32)
[2017-09-24] MEDS: LACTULOSE SYRUP 20 GM/30 ML CUP PO SCH (09:33)
[2017-09-24] MEDS: SPIRONOLACTONE 25 MG TAB PO SCH (09:33)
[2017-09-24] MEDS: PROPRANOLOL HCL 20 MG TAB PO SCH ×2 (09:35→13:27)
--- NOTE | 2017-09-24 10:31 | HHI.GIFU ---
GI Follow-up Note Consult Follow-up Subjective: Patient laying in bed comfortably, no new complaints except he wants to go home. Family at bedside. They state his mental status has been good past 2 days. Diarrhea better. Objective: PHYSICAL EXAMINATION: Vitals signs stable No fever ABDOMEN: Soft, nondistended, nontender; pos hepatomegaly as before. INSERT CUTTER: alert and oriented times three. Available Data (labs, X- Rays, Procedues) : Liver US stable. Shows cirrhosis but no bilary obstruction or mass lesions. Laboratory Tests Test 09/21/17 11:50 09/21/17 11:52 09/21/17 14:45 09/21/17 18:15 Red Blood Count 4.14 MIL/MM3 (4.50-5.90) Platelet Count 70 TH/MM3 (150-450) Neutrophils (%) (Auto) 80.4 % (16.0-70.0) Lymphocytes # (Auto) 0.9 TH/MM3 (1.0-4.8) Platelet Estimate LOW (NORMAL) Ovalocytes 1+ (NORMAL) Prothrombin Time 13.0 SEC (9.8-11.6) Blood Urea Nitrogen 26 MG/DL (7-18) Creatinine 1.33 MG/DL (0.60-1.30) Random Glucose 126 MG/DL (74-106) Alkaline Phosphatase 119 U/L (45-117) Aspartate Amino Transf (AST/SGOT) 55 U/L (15-37) Total Bilirubin 2.1 MG/DL (0.2-1.0) Chloride Level 115 MEQ/L (98-107) Carbon Dioxide Level 20.3 MEQ/L (21.0-32.0) Estimat Glomerular Filtration Rate 52 ML/MIN (>89) Ammonia 110 MCMOL/L (11-32) Test 09/22/17 05:08 09/23/17 07:52 09/24/17 07:15 Red Blood Count 3.87 MIL/MM3 (4.50-5.90) 3.91 MIL/MM3 (4.50-5.90) 3.45 MIL/MM3 (4.50-5.90) Hemoglobin 12.9 GM/DL (13.0-17.0) 11.6 GM/DL (13.0-17.0) Hematocrit 36.7 % (39.0-51.0) 37.3 % (39.0-51.0) 32.9 % (39.0-51.0) Platelet Count 65 TH/MM3 (150-450) 50 TH/MM3 (150-450) 43 TH/MM3 (150-450) Neutrophils (%) (Auto) 78.9 % (16.0-70.0) 87.0 % (16.0-70.0) 79.5 % (16.0-70.0) Lymphocytes # (Auto) 0.8 TH/MM3 (1.0-4.8) 0.6 TH/MM3 (1.0-4.8) 0.7 TH/MM3 (1.0-4.8) Platelet Estimate LOW (NORMAL) LOW (NORMAL) LOW (NORMAL) Total Bilirubin 3.1 MG/DL (0.2-1.0) 4.7 MG/DL (0.2-1.0) Direct Bilirubin 0.3 MG/DL (0.0-0.2) Indirect Bilirubin 2.8 MG/DL (0.0-0.8) Aspartate Amino Transf (AST/SGOT) 47 U/L (15-37) Ammonia 71 MCMOL/L (11-32) 87 MCMOL/L (11-32) Albumin 3.2 GM/DL (3.4-5.0) 3.2 GM/DL (3.4-5.0) 2.6 GM/DL (3.4-5.0) Lymphocytes (%) (Auto) 7.2 % (9.0-44.0) Ovalocytes 1+ (NORMAL) 1+ (NORMAL) Prothrombin Time 13.7 SEC (9.8-11.6) Blood Urea Nitrogen 22 MG/DL (7-18) 28 MG/DL (7-18) Random Glucose 118 MG/DL (74-106) 107 MG/DL (74-106) Total Protein 6.3 GM/DL (6.4-8.2) Magnesium Level 1.3 MG/DL (1.5-2.5) 1.3 MG/DL (1.5-2.5) Chloride Level 116 MEQ/L (98-107) 114 MEQ/L (98-107) Carbon Dioxide Level 19.0 MEQ/L (21.0-32.0) 18.3 MEQ/L (21.0-32.0) Estimat Glomerular Filtration Rate 54 ML/MIN (>89) 54 ML/MIN (>89) Calcium Level 8.0 MG/DL (8.5-10.1) Potassium Level 3.3 MEQ/L (3.5-5.1) ASSESSMENT/PLAN: 1. Cirrhosis w/ HE-improved. I think he has reached max benefit from hospital and could go home or to rehab. He needs to stay on Xifaxan BID and titrate the lactulose as discussed previously. He has appointment soon with Dr Rojas and will recheck LFTs. We also mutually agreed to hold the 6MP and he will discuss with Dr Rojas alternative treatment options. 2. Crohn's 3. Diarrhea-improving It was a pleasure seeing Denis Chapman. Thank you for this consult. Entered by: Ilya Pickard MD Sep 24, 2017 10:31
--- NOTE | 2017-09-24 10:43 | HHI.HCPN ---
Reason for visit a. To assist with evaluation and management of symptoms including: confusion ; diarrhea, b. To assist medical decision maker(s) with: better understanding of current medical conditions; weighing benefits/burdens of medical treatment options; making medical treatment decisions. Subjective/Interval History Visit necessitated by follow up on confusion, dyspnea, and goals of treatment. Today ammonia trended slightly up to 87, but overall better than 110. Pt endorse he wants to go home. Family state mental status has been better. GI has followed and recomends pt Continue Xifaxan BID and titrate lactulose. There is a follow up appointmet with Dr. Rojas. Pt himself is alert and oriented. Pt himself also is capacitated. He ate, and walked around the floor with his walker today. Pt and family endorse he wants to go home. He is not confuse. He denies dyspnea on my visit. He has diarrhea, but pt know he needs the lactulose. He has his who will make sure pt is compliant with meds. Living will is completed and I will send it to HIM. We discussed DNR status. As pt has rebounded (less confused, walking around), pt and family are not ready to sign community DNR at this point, and wants to change back to Full Code. For now he just want his living will to be in place, if condition worsen and he could not rebound. They do wanted to keep a copy of a blank DNR if they change their mind. They were very appreciative of the visit. Family/friend interactions family at bedside. Please see above on discussion. Advance Directives Living Will: Copy in medical record Health Care Surrogate: Never completed Durable Power of Powder Room Attendant: Never completed Advance Directive Specifics Date completed: Has never completed an advance directive but advance directive forms were provided to patient and family on 09/22/17 . Health Care Surrogate(s): Patient has verbally designated that he want his spouse to serve as his health care surrogate. . Documented care wishes: No written documentation of health care preferences / goals at this time. . Objective Vital Signs Date Time Temp Pulse Resp B/P (MAP) Pulse Ox O2 Delivery O2 Flow Rate FiO2 09/24/17 08:00 98.4 63 18 128/60 (82) 95 09/24/17 07:33 95 21 09/24/17 00:00 98.1 84 14 120/62 (81) 98 09/23/17 20:56 96 21 09/23/17 20:00 98.0 86 14 120/60 (80) 98 09/23/17 16:00 98.8 82 18 150/65 (93) 98 09/23/17 16:00 82 09/23/17 12:00 99.0 76 18 150/65 (93) 96 09/23/17 12:00 76 Physical Exam CONSTITUTIONAL/GENERAL: This is a thin, frail appearing patient . He is awake, conversant, walking around on the floor. TUBES/LINES/DRAINS: No 02. Peripheral IV. SKIN: No jaundice, rashes. Significant actinic skin damage on all sun-exposed areas. Ecchymoses on upper extremities. Skin temperature appropriate. Not diaphoretic. HEAD: Atraumatic. Normocephalic. EYES: Pupils equal and round and reactive. Extraocular motions intact. No scleral icterus. No injection or drainage. Fundi not examined. ENT: Hearing grossly normal. Nose without bleeding or purulent drainage. Throat without visible erythema, exudates, masses, or lesions. NECK: Trachea midline. Supple, nontender. No palpable thyroid enlargement or nodularity. CARDIOVASCULAR: Regular rate and rhythm without murmurs, gallops, or rubs. RESPIRATORY/CHEST: Symmetric, unlabored respirations. Clear to auscultation. GASTROINTESTINAL: Abdomen soft, non-tender, but distended. . No hepato- splenomegaly, or palpable masses. No guarding. Bowel sounds present. GENITOURINARY: Without palpable bladder distension. MUSCULOSKELETAL: Extremities without clubbing, cyanosis, or edema. LYMPHATICS: No examined. NEUROLOGICAL: Awake and alert. Motor and sensory grossly within normal limits. Follows commands. Answers most questions appropriately. Moves all extremities. PSYCHIATRIC: No obvious anxiety/depression. no apparent hallucinations or other psychotic thought process. . Diagnostic Tests Laboratory Laboratory Tests Test 09/21/17 11:50 09/21/17 11:52 09/21/17 14:45 09/21/17 18:15 White Blood Count 7.1 TH/MM3 (4.0-11.0) Red Blood Count 4.14 MIL/MM3 (4.50-5.90) Hemoglobin 13.7 GM/DL (13.0-17.0) Hematocrit 39.2 % (39.0-51.0) Mean Corpuscular Volume 94.9 FL (80.0-100.0) Mean Corpuscular Hemoglobin 33.1 PG (27.0-34.0) Mean Corpuscular Hemoglobin Concent 34.9 % (32.0-36.0) Red Cell Distribution Width 15.2 % (11.6-17.2) Platelet Count 70 TH/MM3 (150-450) Mean Platelet Volume 7.6 FL (7.0-11.0) Neutrophils (%) (Auto) 80.4 % (16.0-70.0) Lymphocytes (%) (Auto) 12.8 % (9.0-44.0) Monocytes (%) (Auto) 4.8 % (0.0-8.0) Eosinophils (%) (Auto) 1.6 % (0.0-4.0) Basophils (%) (Auto) 0.4 % (0.0-2.0) Neutrophils # (Auto) 5.7 TH/MM3 (1.8-7.7) Lymphocytes # (Auto) 0.9 TH/MM3 (1.0-4.8) Monocytes # (Auto) 0.3 TH/MM3 (0-0.9) Eosinophils # (Auto) 0.1 TH/MM3 (0-0.4) Basophils # (Auto) 0.0 TH/MM3 (0-0.2) CBC Comment AUTO DIFF Differential Comment AUTO DIFF CONFIRMED Platelet Estimate LOW (NORMAL) Platelet Morphology Comment NORMAL (NORMAL) Ovalocytes 1+ (NORMAL) Prothrombin Time 13.0 SEC (9.8-11.6) Prothromb Time International Ratio 1.3 RATIO Activated Partial Thromboplast Time 26.6 SEC (24.3-30.1) Blood Urea Nitrogen 26 MG/DL (7-18) Creatinine 1.33 MG/DL (0.60-1.30) Random Glucose 126 MG/DL (74-106) Total Protein 7.2 GM/DL (6.4-8.2) Albumin 3.6 GM/DL (3.4-5.0) Calcium Level 8.9 MG/DL (8.5-10.1) Alkaline Phosphatase 119 U/L (45-117) Aspartate Amino Transf (AST/SGOT) 55 U/L (15-37) Alanine Aminotransferase (ALT/SGPT) 47 U/L (12-78) Total Bilirubin 2.1 MG/DL (0.2-1.0) Sodium Level 143 MEQ/L (136-145) Potassium Level 4.3 MEQ/L (3.5-5.1) Chloride Level 115 MEQ/L (98-107) Carbon Dioxide Level 20.3 MEQ/L (21.0-32.0) Anion Gap 8 MEQ/L (5-15) Estimat Glomerular Filtration Rate 52 ML/MIN (>89) Total Creatine Kinase 42 U/L (39-308) Ethyl Alcohol Level LESS THAN 3 MG/DL (0-5) Ammonia 110 MCMOL/L (11-32) Urine Color YELLOW (YELLW/STRAW) Urine Turbidity CLEAR (CLEAR) Urine pH 6.0 (5.0-8.5) Urine Specific [place] 1.018 (1.002-1.035) Urine Protein NEG mg/dL (NEG-TRACE) Urine Glucose (UA) NEG mg/dL (NEG) Urine Ketones NEG mg/dL (NEG) Urine Occult Blood NEG (NEG) Urine Nitrite NEG (NEG) Urine Bilirubin NEG (NEG) Urine Urobilinogen 2.0 MG/DL (LESS THAN Urine Leukocyte Esterase NEG (NEG) Urine RBC 1 /hpf (0-3) Urine WBC 1 /hpf (0-5) Urine Squamous Epithelial Cells <1 /hpf (0-5) Urine Hyaline Casts 3 /lpf (RARE) Microscopic Urinalysis Comment CATH-CULT NOT IND Urine Opiates Screen NEG (NEG) Urine Barbiturates Screen NEG (NEG) Urine Amphetamines Screen NEG (NEG) Urine Benzodiazepines Screen NEG (NEG) Urine Cocaine Screen NEG (NEG) Urine Cannabinoids Screen NEG (NEG) Nasal Screen MRSA (PCR) MRSA NOT DETECTED (NOT Test 09/22/17 05:08 09/23/17 07:52 09/24/17 07:15 White Blood Count 6.1 TH/MM3 (4.0-11.0) 8.9 TH/MM3 (4.0-11.0) 6.5 TH/MM3 (4.0-11.0) Red Blood Count 3.87 MIL/MM3 (4.50-5.90) 3.91 MIL/MM3 (4.50-5.90) 3.45 MIL/MM3 (4.50-5.90) Hemoglobin 12.9 GM/DL (13.0-17.0) 13.1 GM/DL (13.0-17.0) 11.6 GM/DL (13.0-17.0) Hematocrit 36.7 % (39.0-51.0) 37.3 % (39.0-51.0) 32.9 % (39.0-51.0) Mean Corpuscular Volume 94.9 FL (80.0-100.0) 95.3 FL (80.0-100.0) 95.3 FL (80.0-100.0) Mean Corpuscular Hemoglobin 33.2 PG (27.0-34.0) 33.6 PG (27.0-34.0) 33.6 PG (27.0-34.0) Mean Corpuscular Hemoglobin Concent 35.0 % (32.0-36.0) 35.2 % (32.0-36.0) 35.2 % (32.0-36.0) Red Cell Distribution Width 14.9 % (11.6-17.2) 14.6 % (11.6-17.2) 14.4 % (11.6-17.2) Platelet Count 65 TH/MM3 (150-450) 50 TH/MM3 (150-450) 43 TH/MM3 (150-450) Mean Platelet Volume 7.4 FL (7.0-11.0) 7.4 FL (7.0-11.0) 7.9 FL (7.0-11.0) Neutrophils (%) (Auto) 78.9 % (16.0-70.0) 87.0 % (16.0-70.0) 79.5 % (16.0-70.0) Lymphocytes (%) (Auto) 13.7 % (9.0-44.0) 7.2 % (9.0-44.0) 11.4 % (9.0-44.0) Monocytes (%) (Auto) 5.6 % (0.0-8.0) 5.0 % (0.0-8.0) 7.9 % (0.0-8.0) Eosinophils (%) (Auto) 1.4 % (0.0-4.0) 0.5 % (0.0-4.0) 1.0 % (0.0-4.0) Basophils (%) (Auto) 0.4 % (0.0-2.0) 0.3 % (0.0-2.0) 0.2 % (0.0-2.0) Neutrophils # (Auto) 4.9 TH/MM3 (1.8-7.7) 7.7 TH/MM3 (1.8-7.7) 5.1 TH/MM3 (1.8-7.7) Lymphocytes # (Auto) 0.8 TH/MM3 (1.0-4.8) 0.6 TH/MM3 (1.0-4.8) 0.7 TH/MM3 (1.0-4.8) Monocytes # (Auto) 0.3 TH/MM3 (0-0.9) 0.4 TH/MM3 (0-0.9) 0.5 TH/MM3 (0-0.9) Eosinophils # (Auto) 0.1 TH/MM3 (0-0.4) 0.0 TH/MM3 (0-0.4) 0.1 TH/MM3 (0-0.4) Basophils # (Auto) 0.0 TH/MM3 (0-0.2) 0.0 TH/MM3 (0-0.2) 0.0 TH/MM3 (0-0.2) CBC Comment AUTO DIFF AUTO DIFF AUTO DIFF Differential Comment AUTO DIFF CONFIRMED AUTO DIFF CONFIRMED AUTO DIFF CONFIRMED Platelet Estimate LOW (NORMAL) LOW (NORMAL) LOW (NORMAL) Platelet Morphology Comment NORMAL (NORMAL) NORMAL (NORMAL) NORMAL (NORMAL) Total Bilirubin 3.1 MG/DL (0.2-1.0) 4.7 MG/DL (0.2-1.0) Direct Bilirubin 0.3 MG/DL (0.0-0.2) Indirect Bilirubin 2.8 MG/DL (0.0-0.8) Aspartate Amino Transf (AST/SGOT) 47 U/L (15-37) 32 U/L (15-37) Alanine Aminotransferase (ALT/SGPT) 49 U/L (12-78) 41 U/L (12-78) Alkaline Phosphatase 73 U/L (45-117) 61 U/L (45-117) Ammonia 71 MCMOL/L (11-32) 87 MCMOL/L (11-32) Total Protein 6.4 GM/DL (6.4-8.2) 6.3 GM/DL (6.4-8.2) Albumin 3.2 GM/DL (3.4-5.0) 3.2 GM/DL (3.4-5.0) 2.6 GM/DL (3.4-5.0) Lipase 278 U/L (73-393) Ovalocytes 1+ (NORMAL) 1+ (NORMAL) Keratocytes OCC (NORMAL) Prothrombin Time 13.7 SEC (9.8-11.6) Prothromb Time International Ratio 1.4 RATIO Blood Urea Nitrogen 22 MG/DL (7-18) 28 MG/DL (7-18) Creatinine 1.29 MG/DL (0.60-1.30) 1.29 MG/DL (0.60-1.30) Random Glucose 118 MG/DL (74-106) 107 MG/DL (74-106) Calcium Level 8.6 MG/DL (8.5-10.1) 8.0 MG/DL (8.5-10.1) Phosphorus Level 2.5 MG/DL (2.5-4.9) 2.6 MG/DL (2.5-4.9) Magnesium Level 1.3 MG/DL (1.5-2.5) 1.3 MG/DL (1.5-2.5) Sodium Level 144 MEQ/L (136-145) 144 MEQ/L (136-145) Potassium Level 3.7 MEQ/L (3.5-5.1) 3.3 MEQ/L (3.5-5.1) Chloride Level 116 MEQ/L (98-107) 114 MEQ/L (98-107) Carbon Dioxide Level 19.0 MEQ/L (21.0-32.0) 18.3 MEQ/L (21.0-32.0) Anion Gap 9 MEQ/L (5-15) 12 MEQ/L (5-15) Estimat Glomerular Filtration Rate 54 ML/MIN (>89) 54 ML/MIN (>89) Hemoglobin A1c 4.4 % (4.3-6.0) Free Thyroxine 1.18 NG/DL (0.76-1.46) Thyroid Stimulating Hormone 3rd Gen 0.983 uIU/ML (0.358-3.740) Result Diagram: 09/24/17 0715 09/24/17 0715 Assessment and Plan Disease Oriented Problem List: (1) Hepatic encephalopathy (2) Hepatic cirrhosis (3) Abnormal LFTs (liver function tests) (4) Hypersplenism (5) Thrombocytopenia (6) Acute kidney injury (7) COPD (chronic obstructive pulmonary disease) (8) BPH (benign prostatic hyperplasia) (9) Crohn's disease (10) Hyperammonemia Symptom Scale: (1) Pain 0-10 Scale: 0 Comment: Denies pain at this time. No chronic pain syndromes noted. . (2) Diarrhea 0-10 Scale: 2 Comment: Patient normally has some loose stools due to his Crohn's disease and his two small bowel resections. Loose stools normally increased as he is updosing lactulose. Also believes bowels became loose after he was started mid- July on Nicotinamide. . (3) Confusion 0-10 Scale: 0 Comment: Confusion was quite severe during this episode. Patient now appears close to baseline. . Pertinent Non-Medical Issues Psychosocial: Spiritual: Legal: Ethical issues impacting care: Important Contacts * Chante Chapman (spouse) [phone]; [phone] * . Prognosis Patient has hepatic cirrhosis with hypersplenism and thrombocytopenia. He has been on a slow, steady decline for about a year including a 40 lb weight loss. There have been increasing episodes of confusion. His course is complicated by COPD with ongoing smoking; Crohn's disease (currently in remission); and multiple cutaneous skin cancers. As patient appears to be improving, I doubt this hospitalization signals the beginning of true end stage liver disease. Anticipate, however, that periods of encephalopathy will begin to come more frequently and be more refractory to treatment. . Code Status: No Code Plan == Code Status: Pt has rebounded, pt and family recinde DNR. == Decision making: Pt today has capacity to make decisions. == Goals of medical treatment: Patient desires ongoing aggressive care today == Symptoms * Confusion -- patient has had intermittent confusion for years and has been attributed to encephalopathy from his liver disease. This episode was one of his most severe. Confusion has resolved today. * Diarrhea: Patient has some chronic loose stools due to his Crohn's and history of 2 separate small bowel excisions . He also has loose stools from his lactulose. For control of the encephalopathy, would recommend aiming for 2- 3 semi-formed bowel movements per day. * Pain: Denies pain == Uncertain if there are any "fixable" factors that may have contributed to the increasing encephalopathy. Some factors might include: * Patient may not have been taking all his medications as directed * Patient was started mid July on nicotinamide. At usual doses, this is felt to help liver disease. However, at higher doses may further injure the liver. Probably want to check current dosing. Patient says he has had increased loose stools since starting this. 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 May want to check what type of "chemo" this is and if local injections could conceivably impact patient's underlying liver disease. == Patient is currently smoking. Family reports he is smoking 1 to 1.5 ppd which is more than the patient admits to. Patient was counseled to stop. == Advance Care Planning: Living Will completed and scanned into system. Pt/ Family has declined community DNR for patient. Does want resucitation. == Disposition: Anticipate patient will be discharged home when he leaves the hospital. == Palliative care will continue to follow to assist with symptom management and to further clarify goals of medical treatment as the clinical course evolves. . Attestation To help prompt me to consider important information that might be impacting today's encounter and assessment, information from prior notes written by myself or my colleagues may have been "brought forward" into today's note. My signature on this note, however, is an attestation that I personally performed the exam, history, and/or decision-making noted today, and, unless otherwise indicated, the interactions with patient, family, and staff as well as the review of records all occurred today. I also attest that the listed assessment and stated plan reflect my best clinical judgment today based on the combination of historical information, prior notes, and today's exam/ interactions. When time spent is documented, it refers only to time spent today by the signer, or if indicated, combined time spent today by collaborating physician/nurse practitioner. Soto Pelayo MD Sep 24, 2017 10:43
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
[2017-09-24] MEDS ORDERED: WALKER WHEELS/F1 MIS (11:32)
[2017-09-24] MEDS ORDERED: LACT10SO PO (11:32)
[2017-09-24 12:00] VITALS: BP 122/65; PULSE 73; RESP 18; TEMP 97.8; O2SAT 98
[2017-09-24 13:00] LABS: ALBUMIN 2.8 GM/DL (3.4-5.0); DIRECT BILIRUBIN ADULT 0.3 MG/DL (0.0-0.2); INDIRECT BILIRUBIN 4.2 MG/DL (0.0-0.8); TOTAL BILIRUBIN ADULT 4.5 MG/DL (0.2-1.0); TOTAL PROTEIN 6.5 GM/DL (6.4-8.2)
== END 2017-09-24 13:52 | disposition home or self-care (01) | DRG 441 ==
LOC: NEPE 11:18 → INTOOBSV 14:52 → NEDA 14:52 → HIME 17:25 → OBSVTOIN 18:00 → N05B 09-23 16:36
PROVIDERS: ADMIT Hospitalist; ATTEND Hospitalist
DX: K72.90 Hepatic failure, unspecified without coma (principal); G92 Toxic encephalopathy; N17.9 Acute kidney failure, unspecified; D61.818 Other pancytopenia; E72.20 Disorder of urea cycle metabolism, unspecified; K50.90 Crohn's disease, unspecified, without complications; E87.2 Acidosis; N40.0 Benign prostatic hyperplasia without lower urinary tract symptoms; J44.9 Chronic obstructive pulmonary disease, unspecified; M79.602 Pain in left arm; R63.4 Abnormal weight loss; R94.5 Abnormal results of liver function studies; K70.30 Alcoholic cirrhosis of liver without ascites; D73.1 Hypersplenism; I10 Essential (primary) hypertension; F17.210 Nicotine dependence, cigarettes, uncomplicated; R19.7 Diarrhea, unspecified; K21.9 Gastro-esophageal reflux disease without esophagitis; F10.21 Alcohol dependence, in remission; T47.3X5A Adverse effect of saline and osmotic laxatives, initial encounter; Z85.820 Personal history of malignant melanoma of skin; Z79.899 Other long term (current) drug therapy; Z88.1 Allergy status to other antibiotic agents; Z91.14 Patient's other noncompliance with medication regimen
CPT/HCPCS: 70450; 71045; 76705; 80053; 80069; 80076; 80307; 81001; 82140; 82550; 82948; 83036; 83690; 83735; 84100; 84439; 84443; 85025; 85610; 85730; 87641; 93005; 94640; 94664; J1644; J7030; J7040

== ENCOUNTER → 2017-11-12 | Outpatient (CLI) | payer MEDICARE ==
[~2017-11-12] MED LIST changes: -DILA2TAB4 PO; +LACT10SO PO; +MACR100C2 PO; -POLY17PO3 PO; -TRAM50TA PO; +WALKER WHEELS/F1 MIS
== END ==
LOC: PLAB 10:34
PROVIDERS: ATTEND Dermatology Procedural Dermatology
DX: Z51.81 Encounter for therapeutic drug level monitoring (principal)
CPT/HCPCS: 36415; 82955

== ENCOUNTER 2017-11-14 09:56 | Emergency (ER) | payer MEDICARE ==
[~2017-11-14 09:56] MED LIST changes: -MACR100C2 PO
[2017-11-14 09:58] VITALS: BP 137/68; PULSE 66; RESP 20; TEMP 98.3; O2SAT 98
--- NOTE | 2017-11-14 10:08 | PD ---
HPI Chief Complaint: Altered Mental Status Time Seen by Provider: 10:06 Travel History International Travel<30 days: No Contact w/Intl Traveler<30days: No Traveled to known affect area: No History of Present Illness HPI 82-year-old male came to the emergency room brought by EMS for altered mental status. Patient was not any condition to give any meaningful history given his degree of confusion. He was disoriented in space and time. As per the wrapper stripper patient has history of end-stage liver disease and has had hepatic encephalopathy in the past. Vital signs were relatively stable. Blood glucose was stable. Patient would open his eyes and try to answer some questions although because of the confusion the answers were not appropriate. He lives with his and his at call 911. As per the like to the paramedics the confusion was worse today. PFSH Past Medical History Narrative Medical List of his past medical, surgical, social and family history is reviewed from the nursing note Hx Anticoagulant Therapy: No Arthritis: No Asthma: No Autoimmune Disease: No Anxiety: No Depression: No Heart Rhythm Problems: No Cancer: Yes (MELANOMA, SQUAMOUS CELL SKIN CANCERS) Cardiovascular Problems: Yes High Cholesterol: No Chemotherapy: Yes Chest Pain: No Congestive Heart Failure: No COPD: Yes Cerebrovascular Accident: No Diabetes: No Diminished Hearing: No Endocrine: No Gastrointestinal Disorders: Yes (STONES IN LIVER DUCT, CHRONS DISEASE, CIRRHOSIS OF LIVER) GERD: Yes Genitourinary: Yes (ENLARGED PROSTATE) Hepatitis: No Hiatal Hernia: Yes Hypertension: Yes Immune Disorder: Yes (CA; CROHN'S) Kidney Stones: Yes Musculoskeletal: Yes (CERVICAL SPINE--PINCHED NERVE CAUSING LEFT ARM PAIN) Neurologic: Yes (BALANCE ISSUES) Psychiatric: No Reproductive: No Respiratory: Yes Migraines: No Radiation Therapy: Yes Renal Failure: No Seizures: No Sickle Cell Disease: No Sleep Apnea: No Thyroid Disease: No Ulcer: Yes Past Surgical History Abdominal Surgery: Yes (SMALL BOWEL RESECTION X2, CHOLECYSTECTOMY,APPENDECTOMY) AICD: No Arteriovenous Shunt: No Body Medical Devices: NONE Cardiac Surgery: No Cholecystectomy: Yes Ear Surgery: No Endocrine Surgery: No Eye Surgery: No Genitourinary Surgery: No Gynecologic Surgery: No Insulin Pump: No Joint Replacement: No Neurologic Surgery: No Oral Surgery: Yes Pacemaker: No Thoracic Surgery: No Tonsillectomy: Yes Other Surgery: Yes Social History Alcohol Use: No Tobacco Use: Yes (1/2PPD) Substance Use: No Allergies-Medications (Allergen,Severity, Reaction): Coded Allergies: cephalexin (Verified Allergy, Severe, Rash INSIDE MOUTH, 11/14/17) Comments List of his allergies reviewed from the nursing note. Reported Meds & Prescriptions Reported Meds & Active Scripts Active Macrobid (Nitrofurantoin Monoh/Nitrofur Macro) 100 Mg Cap 100 Mg PO BID 10 Days Lactulose Liq (Lactulose) 10 Gm/15 Ml Soln 30 Ml PO Q6H PRN Walker with Front Wheels (Device) 1 Mis Mis Ea .XX DIRECTED Reported Rapaflo (Silodosin) 4 Mg Cap Unknown Dose PO DAILY Cialis (Tadalafil) 5 Mg Tab 5 Mg PO DAILY Do not exceed 1 dose/day. Spironolactone 25 Mg Tab 25 Mg PO BIDPC Xifaxan (Rifaximin) 550 Mg Tab 550 Mg PO BID Rabeprazole (Rabeprazole Sodium) 20 Mg Tab 20 Mg PO DAILY Propranolol (Propranolol HCl) 20 Mg Tab 20 Mg PO TID Mercaptopurine 50 Mg Tab 25 Mg PO DAILY Narrative Medication List of his home medications reviewed from the nursing note Review of Systems ROS Limitations: Altered Mental Status Except as stated in HPI: all other systems reviewed are Neg Physical Exam Narrative GENERAL: Awake, confused, mild distress SKIN: Focused skin assessment warm/dry. Spider hemangioma multiple HEAD: Atraumatic. Normocephalic. EYES: Pupils equal and round. No scleral icterus. No injection or drainage. ENT: No nasal bleeding or discharge. Mucous membranes pink and moist. NECK: Trachea midline. No JVD. CARDIOVASCULAR: Regular rate and rhythm. No murmur appreciated. RESPIRATORY: No accessory muscle use. Clear to auscultation. Breath sounds equal bilaterally. GASTROINTESTINAL: Abdomen soft, non-tender, nondistended. Hepatic and splenic margins not palpable. MUSCULOSKELETAL: No obvious deformities. No clubbing. No cyanosis. No edema. NEUROLOGICAL: GCS of 14. No obvious cranial nerve deficits. Motor grossly within normal limits. Normal speech. PSYCHIATRIC: Appropriate mood and affect; insight and judgment normal. Data Data Last Documented VS Vital Signs Date Time Temp Pulse Resp B/P (MAP) Pulse Ox O2 Delivery O2 Flow Rate FiO2 11/14/17 15:40 11/14/17 13:22 56 20 100 11/14/17 09:58 98.3 Orders Orders Electrocardiogram (11/14/17 10:25) Ammonia (11/14/17 10:25) Complete Blood Count With Diff (11/14/17 10:25) Comprehensive Metabolic Panel (11/14/17 10:25) Creatine Kinase (Cpk) (11/14/17 10:25) Prothrombin Time / Inr (Pt) (11/14/17 10:25) Troponin I (11/14/17 10:25) Thyroid Stimulating Hormone (11/14/17 10:25) Urinalysis - C+S If Indicated (11/14/17 10:25) Lactic Acid Sepsis Protocol (11/14/17 10:25) Blood Culture (11/14/17 10:25) Chest, Single Ap (11/14/17 10:25) Ct Brain W/O Iv Contrast(Rout) (11/14/17 10:25) Blood Glucose (11/14/17 10:25) Ecg Monitoring (11/14/17 10:25) Iv Access Insert/Monitor (11/14/17 10:25) Oximetry (11/14/17 10:25) Sodium Chloride 0.9% Flush (Ns Flush) (11/14/17 10:30) Direct Bilirubin (11/14/17 10:25) Sodium Chlor 0.9% 1000 Ml Inj (Ns 1000 M (11/14/17 12:15) Urine Culture (11/14/17 12:30) Levofloxacin 500 Mg Premix Inj (Levaquin (11/14/17 14:00) Ed Discharge Order (11/14/17 14:44) Sodium Chlorid 0.9% 500 Ml Inj (Ns 500 M (11/14/17 15:00) Labs Laboratory Tests Test 11/14/17 10:10 11/14/17 12:00 11/14/17 12:30 White Blood Count 9.2 TH/MM3 Red Blood Count 4.46 MIL/MM3 Hemoglobin 14.2 GM/DL Hematocrit 42.3 % Mean Corpuscular Volume 94.8 FL Mean Corpuscular Hemoglobin 31.8 PG Mean Corpuscular Hemoglobin Concent 33.5 % Red Cell Distribution Width 13.5 % Platelet Count 103 TH/MM3 Mean Platelet Volume 8.4 FL Neutrophils (%) (Auto) 77.6 % Lymphocytes (%) (Auto) 13.5 % Monocytes (%) (Auto) 5.8 % Eosinophils (%) (Auto) 2.0 % Basophils (%) (Auto) 1.1 % Neutrophils # (Auto) 7.2 TH/MM3 Lymphocytes # (Auto) 1.2 TH/MM3 Monocytes # (Auto) 0.5 TH/MM3 Eosinophils # (Auto) 0.2 TH/MM3 Basophils # (Auto) 0.1 TH/MM3 CBC Comment DIFF FINAL Differential Comment Prothrombin Time 13.1 SEC Prothromb Time International Ratio 1.3 RATIO Blood Urea Nitrogen 33 MG/DL Creatinine 1.40 MG/DL Random Glucose 131 MG/DL Total Protein 6.8 GM/DL Albumin 3.2 GM/DL Calcium Level 8.2 MG/DL Alkaline Phosphatase 105 U/L Aspartate Amino Transf (AST/SGOT) 23 U/L Alanine Aminotransferase (ALT/SGPT) 26 U/L Total Bilirubin 2.6 MG/DL Direct Bilirubin 0.4 MG/DL Sodium Level 139 MEQ/L Potassium Level 4.5 MEQ/L Chloride Level 106 MEQ/L Carbon Dioxide Level 23.5 MEQ/L Anion Gap 10 MEQ/L Estimat Glomerular Filtration Rate 49 ML/MIN Total Creatine Kinase 35 U/L Troponin I LESS THAN 0.02 NG/ML Thyroid Stimulating Hormone 3rd Gen 2.810 uIU/ML Lactic Acid Level 1.9 mmol/L Ammonia 69 MCMOL/L Urine Collection Type CATH Urine Color YELLOW Urine Turbidity CLEAR Urine pH 5.5 Urine Specific [place] 1.020 Urine Protein NEG mg/dL Urine Glucose (UA) NEG mg/dL Urine Ketones NEG mg/dL Urine Occult Blood NEG Urine Nitrite POS Urine Bilirubin NEG Urine Urobilinogen 2.0 MG/DL Urine Leukocyte Esterase SMALL Urine WBC 9-14 /hpf Urine WBC Clumps OCC Urine Squamous Epithelial Cells 0-3 /hpf Urine Bacteria MANY /hpf Microscopic Urinalysis Comment CULTURE INDICATED MDM Medical Decision Making Medical Screen Exam Complete: Yes Emergency Medical Condition: Yes Medical Record Reviewed: Yes Interpretation(s) Twelve-lead EKG was reviewed by me. Normal sinus rhythm, left axis deviation, poor R-wave progression, interventricular conduction delay, bradycardia, nonspecific ST-T wave changes. Heart rate of 59 bpm Differential Diagnosis Hepatic encephalopathy, sepsis, UTI, intracranial bleed Narrative Course 2:47 PM blood test results are back and ammonia is moderately elevated at 69. I have given the patient p.o. lactulose. UA suggestive of UTI and patient is getting IV Levaquin. Patient's was in the room this time and I went and spoke with her. She told me that he does have history of hepatic encephalopathy and he sees Dr. Rdz from GI for his condition. He is on p.o. lactulose at home. He has been taking it like he supposed to. His confusion is progressively worsening and today she found him wandering in the house and she was afraid to take care of him and hence called 911. He was diagnosed with UTI in the early October and finished a 7 day course of Bactrim. At this point patient was quite awake and said that he did not want to stay in the hospital this time. He was answering questions a little more appropriately and seemed more awake than before. He has received a liter of IV fluid bolus. The at this point is comfortable taking him home. I will start him on a 10 day course of Macrobid. Currently he is finishing his IV antibiotic and then he will be discharged home. Procedures EKG Prior to Arrival: No Diagnosis Primary Impression: Altered mental status Qualified Codes: R41.0 - Disorientation, unspecified Additional Impressions: Hepatic encephalopathy UTI (urinary tract infection) Qualified Codes: N39.0 - Urinary tract infection, site not specified Additional Instructions: Please see a GI specialist tomorrow. Continue giving the lactulose twice a day. Take the antibiotic as per the prescription direction. Return to ER if condition worsens any other new concerns. Med/Other Pt SpecificInfo: Prescription(s) given Scripts Nitrofurantoin Monohydrate Macrocrystals (Macrobid) 100 Mg Cap 100 MG PO BID for Infection for 10 Days, #20 CAP 0 Refills Prov: Daniel Isabel MD 11/14/17 Disposition: 01 DISCHARGE HOME Condition: Stable aDniel Isabel MD Nov 14, 2017 10:08
[2017-11-14 10:28] VITALS: O2SAT 95
[2017-11-14] MEDS ORDERED: SODIUM CHLORIDE 0.9% FLUSH 10 ML FLUSH IV FLUSH PRN (10:30)
[2017-11-14 10:55] VITALS: BP 104/48; PULSE 55; RESP 20; O2SAT 98
[2017-11-14 11:00] LABS: AUTOMATED NEUTROPHIL # 7.2 TH/MM3 (1.8-7.7); BASOPHIL # 0.1 TH/MM3 (0-0.2); BASOPHIL % 1.1 % (0.0-2.0); EOSINOPHIL # 0.2 TH/MM3 (0-0.4); HEMATOCRIT 42.3 % (39.0-51.0); HEMOGLOBIN 14.2 GM/DL (13.0-17.0); LYMPH % 13.5 % (9.0-44.0); LYMPHOCYTE # 1.2 TH/MM3 (1.0-4.8); MEAN CELL VOLUME 94.8 FL (80.0-100.0); MEAN CORPUSCULAR HEMOGLOBIN 31.8 PG (27.0-34.0); MEAN CORPUSCULAR HGB CONC 33.5 % (32.0-36.0); MEAN PLATELET VOLUME 8.4 FL (7.0-11.0); MONO % 5.8 % (0.0-8.0); MONOCYTE # 0.5 TH/MM3 (0-0.9); NEUT % 77.6 % (16.0-70.0); PLATELET COUNT 103 TH/MM3 (150-450); RED BLOOD COUNT 4.46 MIL/MM3 (4.50-5.90); RED CELL DISTRIBUTION WIDTH 13.5 % (11.6-17.2); WHITE BLOOD COUNT 9.2 TH/MM3 (4.0-11.0)
[2017-11-14 11:11] LABS: CHLORIDE 106 MEQ/L (98-107); SODIUM (NA) 139 MEQ/L (136-145)
[2017-11-14 11:14] LABS: INTERNATIONAL NORMALIZED RATIO 1.3 RATIO; PROTHROMBIN TIME - PATIENT 13.1 SEC (9.8-11.6)
[2017-11-14 11:15] LABS: ALBUMIN 3.2 GM/DL (3.4-5.0); BICARBONATE 23.5 MEQ/L (21.0-32.0); BLOOD UREA NITROGEN 33 MG/DL (7-18); CALCIUM 8.2 MG/DL (8.5-10.1); GLUCOSE,RANDOM 131 MG/DL (74-106)
[2017-11-14 11:18] LABS: ALT (GPT) 26 U/L (12-78); AST (GOT) 23 U/L (15-37); DIRECT BILIRUBIN ADULT 0.4 MG/DL (0.0-0.2); GLOMERULAR FILTRATION RATE 49 ML/MIN (>89)
[2017-11-14 11:20] LABS: TOTAL BILIRUBIN ADULT 2.6 MG/DL (0.2-1.0); TOTAL PROTEIN 6.8 GM/DL (6.4-8.2)
[2017-11-14 11:21] LABS: ALKALINE PHOSPHATASE 105 U/L (45-117)
[2017-11-14 11:23] LABS: TROPONIN I LESS THAN 0.02 NG/ML (0.02-0.05)
--- NOTE | 2017-11-14 11:44 | RADRPT ---
EXAM DATE: 11/14/2017 11:34 AM EDT AGE/SEX: 82 years / Male INDICATIONS: Altered Mental Status today CLINICAL DATA: This is the patient's initial encounter. Patient reports that signs and symptoms have been present for 1 day and indicates a pain score of 0/10. MEDICAL/SURGICAL HISTORY: . Cirrhosis. Gastroesophageal reflux disease. Chronic obstructive pul monary disease. Melanoma, Thrombocytopenia . Appendectomy. Cholecystectomy. Colon resection. Liver biopsy COMPARISON: [facility] [place], CHEST SINGLE AP, 09/21/2017. . FINDINGS: Portable AP view of the chest demonstrates a normal-sized cardiac silhouette. No effusion, consolidat ion, or pneumothorax is identified. The bones and soft tissues demonstrate no acute finding. EKG line s overlie the patient. CONCLUSION: No acute cardiopulmonary abnormality is identified. Electronically signed by: Saji Sahni MD 11/14/2017 11:43 AM EDT
--- NOTE | 2017-11-14 11:44 | RADRPT ---
EXAM DATE: 11/14/2017 11:19 AM EDT AGE/SEX: 82 years / Male INDICATIONS: Altered mental status. CLINICAL DATA: This is the patient's initial encounter. Patient reports that signs and symptoms have been present for 1 day and indicates a pain score of 0/10. MEDICAL/SURGICAL HISTORY: Hypertension. Chronic obstructive pulmonary disease. Melanoma. None. RADIATION DOSE: 56.70 CTDI (mGy) [place] [facility] [place]. . TECHNIQUE: CT of the head without contrast. Using automated exposure control and adjustment of the mA and/or kV according to patient size, radiation dose was kept as low as reasonably achievable to ob tain optimal diagnostic quality images. FINDINGS: Cerebrum: There is mild generalized atrophy and ventricles are normal given the degree of atrophy. M ild periventricular white matter change is present. No midline shift, mass lesion, hemorrhage or acu te infarction. No extraaxial fluid collections are seen. Posterior Fossa: The cerebellum and brainstem demonstrate no acute abnormality. The 4th ventricle is midline. The cerebellopontine angle is within normal limits. Extracranial: The visualized sinuses are clear. There is a stable metallic foreign body in the right scalp. Skull: The calvaria is intact. No skull fracture. CONCLUSION: Stable noncontrast head CT. No acute intracranial abnormality is identified. Electronically signed by: Saji Sahni MD 11/14/2017 11:42 AM EDT
[2017-11-14] MEDS ORDERED: SODIUM CHLOR 0.9% 1000 ML INJ 1,000 ML IV ONE (12:15)
[2017-11-14 12:34] VITALS: BP 110/54; PULSE 58; RESP 20; O2SAT 97
[2017-11-14 12:39] LABS: BILIRUBIN, URINE NEG (NEG); BLOOD, URINE NEG (NEG); GLUCOSE,URINE NEG (NEG); KETONE, URINE NEG (NEG); NITRITE,URINE POS (NEG); PH, URINE 5.5 (5.0-8.5); URINE COLOR YELLOW (YELLW/STRAW); URINE LEUKOCYTE ESTERASE SMALL (NEG)
[2017-11-14 13:12] LABS: BACTERIA, URINE MANY /hpf; SQUAMOUS EPITHELIAL CELL URINE 0-3 /hpf (0-5); WHITE BLOOD CELL CLUMPS OCC
[2017-11-14 13:22] VITALS: BP 113/49; PULSE 56; RESP 20; O2SAT 100
[2017-11-14] MEDS ORDERED: LEVOFLOXACIN 500 MG PREMIX INJ 100 ML IV ONE (14:00)
[2017-11-14] MEDS ORDERED: MACR100C2 PO (14:50)
[2017-11-14] MEDS ORDERED: SODIUM CHLORID 0.9% 500 ML INJ 500 ML IV ONE (15:00)
--- NOTE | 2017-11-15 23:19 | EKG ---
Date Performed: 11/14/2017 Time Performed: 10:39:06 PTAGE: 82 years EKG: SINUS BRADYCARDIA MODERATE INTRAVENTRICULAR CONDUCTION DELAY BORDERLINE ECG PREVIOUS TRACING : 09/21/2017 11.38 DOCTOR: Kiki Martinez Interpretating Date/Time 11/15/2017 23:05:37
== END 2017-11-14 15:56 | disposition home or self-care (01) ==
LOC: PHED 09:56
DX: R41.0 Disorientation, unspecified (principal); K72.90 Hepatic failure, unspecified without coma; N39.0 Urinary tract infection, site not specified; R94.31 Abnormal electrocardiogram [ECG] [EKG]; B96.20 Unspecified Escherichia coli [E. coli] as the cause of diseases classified elsewhere; J44.9 Chronic obstructive pulmonary disease, unspecified; K74.60 Unspecified cirrhosis of liver; K50.90 Crohn's disease, unspecified, without complications; I10 Essential (primary) hypertension; Z72.0 Tobacco use
CPT/HCPCS: 70450; 71045; 80053; 81001; 82140; 82248; 82550; 83605; 84443; 84484; 85025; 85610; 87040; 87077; 87086; 87186; 93005; 96361; 96365; 99285; J1956; J7030; J7040

== ENCOUNTER → 2017-11-18 | Outpatient (CLI) | payer MEDICARE ==
[~2017-11-18] MED LIST changes: +MACR100C2 PO
[2017-11-18 10:42] LABS: ALBUMIN 3.5 GM/DL (3.4-5.0); AST (GOT) 22 U/L (15-37); BICARBONATE 19.6 MEQ/L (21.0-32.0); BLOOD UREA NITROGEN 25 MG/DL (7-18); CALCIUM 8.2 MG/DL (8.5-10.1); CHLORIDE 107 MEQ/L (98-107); CHOLESTEROL 82 MG/DL (120-200); CREATININE 1.39 MG/DL (0.60-1.30); GLOMERULAR FILTRATION RATE 49 ML/MIN (>89); GLUCOSE,FASTING 116 MG/DL (74-99); MAGNESIUM 1.4 MG/DL (1.5-2.5); SODIUM (NA) 136 MEQ/L (136-145); TRIGLYCERIDES 59 MG/DL (42-150)
[2017-11-18 10:52] LABS: ALKALINE PHOSPHATASE 71 U/L (45-117); ALT (GPT) 17 U/L (12-78); CHOLESTEROL/ HDL RATIO 1.51 RATIO; FREE T4 1.26 NG/DL (0.76-1.46); HDL CHOLESTEROL 54.2 MG/DL (40.0-60.0); LDL CHOLESTEROL 16 MG/DL (0-99); PHOSPHORUS 3.1 MG/DL (2.5-4.9); TOTAL BILIRUBIN ADULT 2.1 MG/DL (0.2-1.0); TOTAL PROTEIN 7.3 GM/DL (6.4-8.2)
== END ==
LOC: PLAB 08:31
PROVIDERS: ATTEND Internal Medicine Interventional Cardiology
DX: R60.9 Edema, unspecified (principal); I10 Essential (primary) hypertension; E78.2 Mixed hyperlipidemia; Z79.899 Other long term (current) drug therapy
CPT/HCPCS: 36415; 80053; 80061; 83735; 84100; 84439; 84443

== ENCOUNTER → 2017-11-22 | Outpatient (CLI) | payer MEDICARE | LOC: PLAB 14:02 | PROVIDERS: ATTEND Physician Assistant Medical | DX: K74.60 Unspecified cirrhosis of liver (principal); Z12.5 Encounter for screening for malignant neoplasm of prostate | CPT/HCPCS: 82105; 84153 ==